=== PATIENT | male | born 1960 | race Caucasian/White ===

== ENCOUNTER → 2016-05-21 | Outpatient (CLI) | payer OTHER ==
[~2016-05-21] MED LIST: ALPR1T PO; BACL10TA PO; DCS100C PO; FNT50TD TD; HYDR-3720 PO; HYOS0.378 PO; METH500T44 PO; ONDA8TAB6 PO; OXYC-272 PO; OXYC15TA PO; SENN1TAB25 PO; SNN187T PO; ZLP10T PO
[2016-05-21 10:21] LABS: MEAN PLATELET VOLUME 9.2 FL (7.4-10.4); RED BLOOD COUNT 5.15 10^6/uL (4.35-5.85); RED CELL DISTRIBUTION WIDTH 13.6 % (10.0-14.5)
[2016-05-21 10:53] LABS: ALANINE AMINOTRANSFERASE 18 U/L (0-55); ALBUMIN 3.9 G/DL (3.2-4.5); ANION GAP 8 MMOL/L (5-14); ASPARTATE AMINO TRANSFERASE 17 U/L (5-34); BILIRUBIN,TOTAL 0.5 MG/DL (0.1-1.0); BLOOD UREA NITROGEN 25 MG/DL (7-18); BUN/CREATININE RATIO 27; CALCIUM 9.5 MG/DL (8.5-10.1); CARBON DIOXIDE 27 MMOL/L (21-32); CHLORIDE 104 MMOL/L (98-107); CHOLESTEROL 238 MG/DL (< 200); CREATININE SERUM 0.94 MG/DL (0.60-1.30); DIRECT LDL 154 MG/DL (1-129); GFR ESTIMATED > 60; GLUCOSE 71 MG/DL (70-105); POTASSIUM 4.5 MMOL/L (3.6-5.0); SODIUM 139 MMOL/L (135-145); TOTAL PROTEIN 6.5 G/DL (6.4-8.2); TRIGLYCERIDES 356 MG/DL (<150); VLDL CHOLESTEROL 71 MG/DL (5-40)
[2016-05-21 11:38] LABS: THYROID STIMULATING HORMONE 3.89 UIU/ML (0.35-4.94)
[2016-05-22 08:26] LABS: CREATININE URINE 226 MG/DL
[2016-05-22 08:30] LABS: BENZODIAZEPINE URINE QUAL DS POSITIVE; METHADONE URINE QUAL DS Negative; OPIATES URINE QUAL DS POSITIVE; PCP URINE QUAL DS Negative; PROPOXYPHENE URINE QUAL DS Negative; SALICYLATE URINE Negative
[2016-05-22 08:31] LABS: URINE DRUG SCREEN POSITIVE
[2016-05-22 08:33] LABS: ETHANOL URINE QUAL DS Negative; THC URINE QUAL DS Negative
[2016-05-26 07:12] LABS: HIV 1/2 INTERP See Footnote; HIV AG AB SCREEN Non-Reactive (Non-Reactive); TESTOSTERONE FREE 65.7 pg/mL (47.0-244.0)
== END ==
LOC: LAB 09:29
PROVIDERS: ATTEND Nurse Practitioner Adult Health
DX: E78.2 Mixed hyperlipidemia (principal); R53.83 Other fatigue; Z79.891 Long term (current) use of opiate analgesic
CPT/HCPCS: 36415; 80053; 80061; 80307; 84402; 84403; 84439; 84443; 85027; 86703

== ENCOUNTER 2017-07-16 14:14 | Emergency (ER) | payer OTHER ==
[~2017-07-16] VITALS: Ht 180.3 cm; Wt 86.2 kg
--- NOTE | 2017-07-16 14:39 | ED Abdominal Pain ---
General Chief Complaint: Abdominal/GI Problems Stated Complaint: ABD PAIN Nursing Triage Note: ARRIVED VIA AMB TO ROOM 05. COMPLAINS OF ABD PAIN RELATED TO AN RIGHT INGUINAL HERNIA. Sepsis Screen: No Definite Risk Source of Information: Patient Exam Limitations: No Limitations History of Present Illness Date Seen by Provider: July 16, 2017 Time Seen by Provider: 14:33 Initial Comments to ER with complaints of a painful right inguinal hernia the past several months. He states that he has had intermittent pain but the pain has been more constant over the past 2-3 days associated with nausea. No vomiting. He is passing gas and having bowel movements without constipation or diarrhea.e states that he's had some left sided inguinal region pain as well and has a history of left inguinal hernia repair several years ago. Comorbidities include chronic back pain for which she takes oxycodone and a seizure disorder for which she takes Xanax. He states that he sees Dr. Stewart from [place] for primary care. She is well-known for her work with HIV patients. He states he does not have hepatitis or HIV, his former partner did have HIV and that's how he got established with Dr. Stweart. Timing/Duration: 2-3 Days Severity/Quality: Moderate Location: RLQ, LLQ Radiation: No Radiation Associated Symptoms: No Fever/Chills; Nausea/Vomiting Allergies and Home Medications Allergies Coded Allergies: NKANo Known Allergies (Verified Allergy, Unknown, 02/18/06) Hydromorphone (Unverified Allergy, 04/20/10) Home Medications Alprazolam 1 Mg Tablet, 1 TAB PO QID PRN for anxiety, (Reported) Oxycodone Hcl 15 Mg Tablet, 15 MG PO Q6H, (Reported) Patient Home Medication List Home Medication List Reviewed: Yes Review of Systems Constitutional: see HPI EENTM: No Symptoms Reported Respiratory: No Symptoms Reported Cardiovascular: No Symptoms Reported Gastrointestinal: See HPI, Abdominal Pain; Denies Constipated, Denies Diarrhea ; Nausea Genitourinary: No Symptoms Reported Musculoskeletal: no symptoms reported Skin: no symptoms reported Psychiatric/Neurological: No Symptoms Reported Endocrine: No Symptoms Reported Past Hscxvoq-Ubvfpe-Rxxvql Hx Patient Social History Recent Foreign Travel: No Contact w/Someone Who Travel: No Recent Infectious Disease Expo: No Recent Hopitalizations: Yes Past Medical History Surgeries: Yes (COLONOSCOPY 05/2010--DIVERTICULOSIS/ANAL FISSURE) Respiratory: No Cardiac: No Neurological: Yes Genitourinary: No Gastrointestinal: Yes (SMALL BOWEL OBSTRUCTION DUE TO NARCOTIC BOWEL 11/2009- NO SURGERY) Chronic Constipation Musculoskeletal: Yes Chronic Back Pain Endocrine: No Cancer: No Psychosocial: Yes Anxiety Integumentary: No Blood Disorders: No Physical Exam Vital Signs Vital Signs - First Documented 07/16/17 14:20 Temp 97.2 Pulse 65 Resp 18 B/P (MAP) 127/79 (95) Pulse Ox 98 O2 Delivery Room Air Capillary Refill : Less Than 3 Seconds General Appearance: WD/WN, no apparent distress HEENT: PERRL/EOMI, normal ENT inspection Neck: non-tender, full range of motion Respiratory: no respiratory distress, no accessory muscle use Cardiovascular: regular rate, rhythm, no murmur Gastrointestinal: normal bowel sounds, soft; No abnormal bowel sounds, No distended, No guarding; tenderness (tthere is a small palpable tender right inguinal hernia that I'm unable to reduce. ) Extremities: normal range of motion, non-tender Neurologic/Psychiatric: alert, normal mood/affect, oriented x 3 Skin: normal color, warm/dry Progress/Results/Core Measures Results/Orders Lab Results Laboratory Tests Test 07/16/17 14:38 07/16/17 15:10 Range/Units White Blood Count 6.7 4.3-11.0 10^3/uL Red Blood Count 4.88 4.35-5.85 10^6/uL Hemoglobin 15.0 13.3-17.7 G/DL Hematocrit 43 40-54 % Mean Corpuscular Volume 88 80-99 FL Mean Corpuscular Hemoglobin 31 25-34 PG Mean Corpuscular Hemoglobin Concent 35 32-36 G/DL Red Cell Distribution Width 13.7 10.0-14.5 % Platelet Count 274 130-400 10^3/uL Mean Platelet Volume 9.0 7.4-10.4 FL Neutrophils (%) (Auto) 43 42-75 % Lymphocytes (%) (Auto) 45 H 12-44 % Monocytes (%) (Auto) 9 0-12 % Eosinophils (%) (Auto) 3 0-10 % Basophils (%) (Auto) 0 0-10 % Neutrophils # (Auto) 2.9 1.8-7.8 X 10^3 Lymphocytes # (Auto) 3.1 1.0-4.0 X 10^3 Monocytes # (Auto) 0.6 0.0-1.0 X 10^3 Eosinophils # (Auto) 0.2 0.0-0.3 10^3/uL Basophils # (Auto) 0.0 0.0-0.1 10^3/uL Sodium Level 140 135-145 MMOL/L Potassium Level 4.0 3.6-5.0 MMOL/L Chloride Level 106 98-107 MMOL/L Carbon Dioxide Level 26 21-32 MMOL/L Anion Gap 8 5-14 MMOL/L Blood Urea Nitrogen 17 7-18 MG/DL Creatinine 1.16 0.60-1.30 MG/DL Estimat Glomerular Filtration Rate > 60 BUN/Creatinine Ratio 15 Glucose Level 94 70-105 MG/DL Calcium Level 8.9 8.5-10.1 MG/DL Total Bilirubin 0.8 0.1-1.0 MG/DL Aspartate Amino Transf (AST/SGOT) 14 5-34 U/L Alanine Aminotransferase (ALT/SGPT) 17 0-55 U/L Alkaline Phosphatase 34 L 40-136 U/L Total Protein 6.6 6.4-8.2 GM/DL Albumin 3.9 3.2-4.5 GM/DL Urine Color YELLOW Urine Clarity CLEAR Urine pH 5 5-9 Urine Specific [place] 1.025 H 1.016-1.022 Urine Protein 1+ H NEGATIVE Urine Glucose (UA) NEGATIVE NEGATIVE Urine Ketones NEGATIVE NEGATIVE Urine Nitrite NEGATIVE NEGATIVE Urine Bilirubin NEGATIVE NEGATIVE Urine Urobilinogen NORMAL NORMAL MG/DL Urine Leukocyte Esterase 1+ H NEGATIVE Urine RBC (Auto) NEGATIVE NEGATIVE Urine RBC NONE /HPF Urine WBC 0-2 /HPF Urine Crystals NONE /LPF Urine Bacteria NONE /HPF Urine Casts NONE /LPF Urine Mucus MODERATE H /LPF Urine Culture Indicated NO Urine Opiates Screen NEGATIVE NEGATIVE Urine Oxycodone Screen POSITIVE H NEGATIVE Urine Methadone Screen NEGATIVE NEGATIVE Urine Propoxyphene Screen NEGATIVE NEGATIVE Urine Barbiturates Screen NEGATIVE NEGATIVE Ur Tricyclic Antidepressants Screen NEGATIVE NEGATIVE Urine Phencyclidine Screen NEGATIVE NEGATIVE Urine Amphetamines Screen NEGATIVE NEGATIVE Urine Methamphetamines Screen NEGATIVE NEGATIVE Urine Benzodiazepines Screen POSITIVE H NEGATIVE Urine Cocaine Screen NEGATIVE NEGATIVE Urine Cannabinoids Screen NEGATIVE NEGATIVE My Orders Orders - NADIR ERICKSON QUARRY SUPERVISOR Cbc With Automated Diff (07/16/17 14:32) Comprehensive Metabolic Panel (07/16/17 14:32) Ua Culture If Indicated (07/16/17 14:32) Iv Heplock-Insert (Order) (07/16/17 14:32) Ct Abdomen/Pelvis W (07/16/17 14:32) Ketorolac Injection (Toradol Injection) (07/16/17 14:45) Drug Screen Stat (Urine) (07/16/17 14:57) Iohexol Injection (Omnipaque 350 Mg/Ml 1 (07/16/17 15:15) Ns (Ivpb) (Sodium Chloride 0.9%) (07/16/17 15:15) Medications Given in ED Current Medications Medications Dose Ordered Sig/Keith Route Start Time Stop Time Status Last Admin Dose Admin Iohexol 100 ml ONCE ONCE IV 07/16/17 15:15 07/16/17 15:16 DC 07/16/17 15:18 100 ML Ketorolac Tromethamine 15 mg ONCE ONCE IVP 07/16/17 14:45 07/16/17 14:46 DC 07/16/17 14:44 15 MG Sodium Chloride 250 ml ONCE ONCE IV 07/16/17 15:15 07/16/17 15:16 DC 07/16/17 15:18 80 ML Vital Signs/I&O 07/16/17 14:20 Temp 97.2 Pulse 65 Resp 18 B/P (MAP) 127/79 (95) Pulse Ox 98 O2 Delivery Room Air Blood Pressure Mean: 95 Diagnostic Imaging Diagonstic Imaging: CT Comments NAME: OLI FREEDMAN [facility] REC#: [id number] PT STATUS: REG ER : 1960 PHYSICIAN: NADIR ERICKSON QUARRY SUPERVISOR ADMIT DATE: 07/16/17/ER Draft Date of Exam:07/16/17 CT ABDOMEN/PELVIS W PROCEDURE: CT abdomen and pelvis with contrast. TECHNIQUE: Multiple contiguous axial images were obtained through the abdomen and pelvis after administration of intravenous contrast. INDICATION: Right-sided abdominal pain. COMPARISON: Comparison is made with prior CT from 11/24/2009. FINDINGS: The lung bases are clear. There are multiple circumscribed low-density lesions within the liver, suggestive of cysts. The largest is in the inferior right lobe measuring 2.8 cm. The cysts have increased in size and number since the CT from 2009. The gallbladder is unremarkable. The pancreas and spleen are unremarkable. No adrenal mass is detected. The kidneys are unremarkable. The aorta is nonaneurysmal. The visualized small and large bowel loops appear to be normal caliber, without evidence of obstruction. There is sigmoid diverticulosis without evidence of acute diverticulitis. There does appear to be a fat-containing hernia in the right groin. The appendix is near this location, but the appendix is not inflamed. No free fluid or fluid collection is identified. There is no free air. Bladder is decompressed. IMPRESSION: 1. Increase in size and number of multiple hepatic cysts since prior CT from 2009. 2. Fat-containing right inguinal hernia. 3. Uncomplicated diverticulosis. Dictated on workstation # [id number] Dict: 07/16/17 1529 Trans: 07/16/17 1539 [id number] Interpreted by: BLANCA FREEDMAN MD Electronically signed by: Departure Communication (Admissions) CT report is only contains fat, no bowel. I'll have him FOLLOW-UP WITH SURGERY IN THE OUTPATIENT SETTING FOR REPAIR OF THIS. Impression Primary Impression: right inguinal hernia Disposition: HOME, SELF-CARE Condition: Stable Departure-Patient Inst. Decision time for Depature: 15:44 Referrals: NARCISA FRANCIS BRETT D DO JENKINS, XAVIER M MD KIDO, TAKAAKI MD NO,LOCAL PHYSICIAN (PCP) Primary Care Physician Patient Instructions: Inguinal and Femoral (Groin) Hernias Add. Discharge Instructions: 1. Return to the emergency room for inability to pass gas or not have a bowel movement. For any fevers or vomiting. Otherwise, call a surgeon of your choosing today to make an appointment to be seen either later this week or next week to schedule repair of this hernia if they feel that is warranted All discharge instructions reviewed with patient and/or family. Voiced understanding. Copy Copies To 1: RHODA GAN PETER J QUARRY SUPERVISOR July 16, 2017 14:39
[2017-07-16] MEDS ORDERED: KETOROLAC 30 MG/ML VIAL IVP ONE (14:45)
--- OUTSIDE RECORDS SUMMARY | 2017-07-16 14:45 | XMS REPORT ---
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
--- OUTSIDE RECORDS SUMMARY | 2017-07-16 14:45 | XMS REPORT ---
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
--- OUTSIDE RECORDS SUMMARY | 2017-07-16 14:45 | XMS REPORT | Clinical Summary ---
Author Author [facility] Organization [facility] Address Unknown Phone Unavailable Care Team Providers Care Vendor Management Associate Name Role Phone Macy Marie PCP Source Comments Some departments are not documenting in the electronic medical record. If you do not see the information that you expected, contact Release of Information in the Health Information Management department at [phone] for further assistance in locating additional records.[facility] Allergies Not on File Current Medications Not on file Active Problems Not on file Social History Tobacco Use Types Packs/Day Years Used Date Never Assessed Sex Assigned at Date Recorded Not on file Last Filed Vital Signs Not on file Plan of Treatment Health Maintenance Due Date Last Done Comments HEPATITIS C SCREENING 1960 PHYSICAL (COMPREHENSIVE) 01/26/1967 EXAM PERTUSSIS VACCINE 01/26/1971 HIV SCREENING 01/26/1975 TETANUS VACCINE 01/26/1977 COLORECTAL CANCER 01/26/2010 SCREENING INFLUENZA VACCINE 11/24/2017 Results Not on filefrom Last 3 Months
[2017-07-16 14:46] LABS: BASOPHILS % (AUTO) 0 % (0-10); EOSINOPHILS # (AUTO) 0.2 10^3/uL (0.0-0.3); EOSINOPHILS % (AUTO) 3 % (0-10); HEMATOCRIT 43 % (40-54); LYMPHOCYTES # (AUTO) 3.1 X 10^3 (1.0-4.0); LYMPHOCYTES % (AUTO) 45 % (12-44); MEAN CORPUSCULAR HEMOGLOBIN 31 PG (25-34); MEAN CORPUSCULAR HGB CONC 35 G/DL (32-36); MEAN CORPUSCULAR VOLUME 88 FL (80-99); MONOCYTES # (AUTO) 0.6 X 10^3 (0.0-1.0); MONOCYTES % (AUTO) 9 % (0-12); NEUTROPHILS # (AUTO) 2.9 X 10^3 (1.8-7.8); NEUTROPHILS % (AUTO) 43 % (42-75); PLATELET COUNT 274 10^3/uL (130-400); RED BLOOD COUNT 4.88 10^6/uL (4.35-5.85); RED CELL DISTRIBUTION WIDTH 13.7 % (10.0-14.5); WHITE BLOOD COUNT 6.7 10^3/uL (4.3-11.0)
--- OUTSIDE RECORDS SUMMARY | 2017-07-16 14:46 | XMS REPORT ---
Author Lora Edouard Organization [facility] Address [address] [place], [place] [address] Care Team Providers Care Oxyacetylene Cutter Name Role Phone Lora Adan Unavailable PROBLEMS Type Condition ICD9-CM Code [id number] Code Onset Dates Condition Status SNOMED Code Problem Chronic depression F32.9 Active 182528390 Problem Low back pain M54.5 Active 075358441 Problem Mixed hyperlipidemia E78.2 Active 337887382 Problem Neuropathy G62.9 Active 307933747 Problem Shortness of breath R06.02 Active 138748058 Problem Generalized anxiety disorder F41.1 Active 77470378 Problem Other chronic pain G89.29 Active 37150696 Problem detention current use of opiate analgesic Z79.891 Active 776150200 Problem Rash and other nonspecific skin eruption R21 Active 000047867 ALLERGIES No Information ENCOUNTERS Encounter Location Date Diagnosis [address] [address] Mar, [address] [address] Mar, Other chronic pain G89.29 and Generalized anxiety disorder F41.[address] [address] Feb, Other chronic pain G89.29 and Generalized anxiety disorder F41.[address] [address] Jan, Other chronic pain G89.29 and Generalized anxiety disorder F41.[address] [address] Dec, Other chronic pain G89.29 and Generalized anxiety disorder F41.[address] [address] Nov, Other chronic pain G89.29 and Generalized anxiety disorder F41.1 [facility] [address] [facility] [place] [address] Oct, Other chronic pain G89.29 ; Generalized anxiety disorder F41.1 and Influenza vaccine needed Z23 [facility] [address] [facility] [place] [address] Sep, Low back pain M54.5 and Generalized anxiety disorder F41.1 [facility] [address] [facility] [place] [address] Aug, [facility] [address] [facility] [place] [address] Aug, [facility] [address] [facility] [place] [address] Aug, Other chronic pain G89.29 [facility] [address] [facility] [place] [address] Aug, Generalized anxiety disorder F41.1 and Low back pain M54.5 [facility] [address] [facility] [place] [address] Jul, Generalized anxiety disorder F41.1 and Low back pain M54.5 [facility] [address] [place] [address] June, Generalized anxiety disorder F41.1 and Low back pain M54.5 [facility] [address] [place] [address] May, Generalized anxiety disorder F41.1 and Low back pain M54.5 [facility] [address] [place] [address] May, [facility] [address] [place] [address] Apr, [facility] [address] [place] [address] Apr, [facility] [address] [place] [address] Apr, Generalized anxiety disorder F41.1 and Low back pain M54.5 [facility] [address] [place] [address] Apr, [facility] [address] [facility] [place] [address] Apr, [facility] [address] [place] [address] Apr, Low back pain M54.5 ; detention current use of opiate analgesic Z79.891 ; Chronic depression F32.9 ; Mixed hyperlipidemia E78.2 ; Generalized anxiety disorder F41.1 and Other fatigue R53.83 [facility] [address] [facility] [place] [address] Mar, [facility] [address] [facility] [place] [address] Mar, [facility] [address] [facility] [place] [address] Mar, Other chronic pain G89.29 and Generalized anxiety disorder F41.1 [facility] [address] [place] [address] Feb, Generalized anxiety disorder F41.1 and Other chronic pain G89.29 [facility] [address] [facility] [place] [address] Feb, [facility] [address] [place] [address] Feb, Sick R69 [facility] [address] [place] [address] Jan, [facility] [address] [place] [address] Jan, Generalized anxiety disorder F41.1 and Other chronic pain G89.29 [facility] [address] [place] [address] Dec, [facility] [address] [place] [address] Dec, Low back pain M54.5 and Generalized anxiety disorder F41.1 [facility] [address] [facility] [place] [address] Dec, [facility] [address] [place] [address] Dec, Low back pain M54.5 [facility] [address] [place] [address] Nov, Generalized anxiety disorder F41.1 and Low back pain M54.[address] [address] Oct, Other chronic pain G89.29 ; Generalized anxiety disorder F41.1 and URI (upper respiratory infection) J06.[address] [address] Oct, [facility] [address] [place] [phone] Sep, Low back pain M54.5 ; 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 ; Generalized anxiety disorder F41.1 ; Chronic depression F32.9 ; Neuropathy G62.9 and URI (upper respiratory infection) J06.[address] [address] Sep, Other chronic pain G89.29 ; Generalized anxiety disorder F41.1 and Upper respiratory infection J06.[address] [address] Aug, [address] [address] Aug, [address] [address] Aug, [address] [address] Aug, [address] [address] Aug, Other chronic pain G89.29 and Generalized anxiety disorder F41.[address] [address] June, Low back pain M54.5 and Generalized anxiety disorder F41.[address] [address] June, [address] [address] June, Other chronic pain G89.29 and Generalized anxiety disorder F41.[address] [address] May, Flu-like symptoms R68.[address] [address] May, Generalized anxiety disorder F41.[address] [address] May, [address] [address] May, Other chronic pain G89.[address] [address] Apr, Generalized anxiety disorder F41.[address] [address] Mar, [address] [address] Mar, [address] [address] Mar, Other chronic pain G89.[address] [address] Mar, [address] [address] Mar, Generalized anxiety disorder F41.[address] [address] Mar, Other chronic pain G89.29 and Generalized anxiety disorder F41.1 [facility] [address] [place] [phone] Feb, 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 ; Other chronic pain G89.29 ; Generalized anxiety disorder F41.1 ; Low back pain M54.5 ; Chronic depression F32.9 ; Mixed hyperlipidemia E78.2 ; Rash and other nonspecific skin eruption R21 ; Shortness of breath R06.02 ; Neuropathy G62.9 and Fungal dermatitis B36.[address] [address] Jan, Other chronic pain G89.29 and Generalized anxiety disorder F41.1 [facility] [address] [place] [address] Jan, Upper respiratory infection J06.9 and Rash R21 [facility] [address] [place] [address] Dec, Generalized anxiety disorder F41.1 and Other chronic pain G89.29 [facility] [address] [place] [address] Dec, [facility] [address] [place] [address] Nov, Other chronic pain G89.29 and Generalized anxiety disorder F41.1 [facility] [address] [place] [address] Oct, [facility] [address] [place] [address] Oct, Other chronic pain 338.29 and Generalized anxiety disorder 300.02 [facility] [address] [place] [address] Sep, [facility] [address] [place] [address] Sep, [facility] [address] [place] [address] Sep, Other chronic pain 338.29 and Generalized anxiety disorder 300.02 [facility] [address] [place] [address] Aug, [facility] [address] [place] [address] Aug, [facility] [address] [place] [address] Aug, [facility] [address] [place] [address] Aug, [facility] [address] [place] [address] Aug, [facility] [address] [place], [place] [phone] Aug, Other chronic pain 338.29 ; Back pain 724.5 ; Dysthymic disorder 300.4 ; Generalized anxiety disorder 300.02 and Tobacco use disorder 305.1 [facility] [address] [place] [address] Jul, Other chronic pain 338.29 [facility] [address] [place] [address] Jul, Other chronic pain 338.29 and Generalized anxiety disorder 300.02 [facility] [address] [place] [address] Jul, [facility] [address] [place] [address] June, Other chronic pain 338.29 and Generalized anxiety disorder 300.02 [facility] [address] [place] [address] June, Other chronic pain 338.29 and Generalized anxiety disorder 300.02 [facility] [address] [phone] May, Back pain 724.5 [facility] [address] [place] [address] Apr, [facility] [address] [place] [address] Mar, [facility] [address] [place] [address] Mar, Other chronic pain 338.29 and Generalized anxiety disorder 300.02 [facility] [address] [place] [address] Feb, Other chronic pain 338.29 and Generalized anxiety disorder 300.02 [facility] [address] [phone] Dec, Other chronic pain 338.29 and Dysthymic disorder 300.4 [facility] [address] [place] [address] Nov, [facility] [address] [place] [address] Nov, Other chronic pain 338.29 UNKNOWN Nov, [facility] [address] [place] [address] Nov, [facility] [address] [facility] [place] [address] Oct, [facility] [place] [place] [facility] [address] [facility] [address] [place] [phone] Oct, Back pain 724.5 [facility] [address] [facility] [place] [phone] Oct, Other chronic pain 338.29 ; Dysthymic disorder 300.4 and Persistent disorder of initiating or maintaining sleep 307.42 [facility] [address] [facility] [place] [address] Oct, [facility] [address] [facility] [place] [address] Oct, [facility] [address] [facility] [place] [address] Oct, [facility] [address] [facility] [place] [address] Sep, Back pain, chronic 724.5 [facility] [address] [facility] [address] [place] [phone] Sep, [facility] [address] [facility] [address] [place] [phone] Sep, [facility] [address] [facility] [address] [place] [phone] June, [facility] [address] [facility] [place] [address] May, [facility] [address] [facility] [place] [address] May, [facility] [address] [facility] [address] [place] [phone] Mar, [facility] [address] [facility] [place] [address] Dec, [facility] [address] [facility] [place] [address] June, [facility] [address] [facility] [place] [address] Apr, [facility] [address] [facility] [place] [address] Feb, [facility] [address] [place] [address] Oct, [facility] [address] [place] [address] Jul, [facility] [address] [place] [address] Feb, [facility] [address] [facility] [address] [place], [place] [phone] Nov, IMMUNIZATIONS No Known Immunizations SOCIAL HISTORY Never Assessed REASON FOR VISIT returning your call PLAN OF CARE VITAL SIGNS MEDICATIONS Medication Instructions Dosage Frequency Start Date End Date Duration Status Lidocaine HCl 2 % Externally Three times a day 1 application to affected area as needed Mar, Active RESULTS No Results PROCEDURES No Known procedures INSTRUCTIONS MEDICATIONS ADMINISTERED No Known Medications MEDICAL (GENERAL) HISTORY Type Description Date Medical History Other convulsions Medical History Impacted cerumen (Inactive) Medical History Dysuria (Inactive) Medical History Nausea with vomiting (Inactive)
--- OUTSIDE RECORDS SUMMARY | 2017-07-16 14:46 | XMS REPORT ---
Author Author Zuleika Stevens Organization [employer] Address Unknown Phone Unavailable Care Team Providers Care Splitter Hand Name Role Phone Zuleika Stevens CP Unavailable Allergies No Known Allergies Problems Problem Type Condition Code Onset Dates Condition Status Problem Chronic depression F32.9 Active Problem Mixed hyperlipidemia E78.2 Active Problem Rash and other nonspecific skin eruption R21 Active Problem Shortness of breath R06.02 Active Problem terminologist current use of opiate analgesic Z79.891 Active Problem Generalized anxiety disorder F41.1 Active Problem Low back pain M54.5 Active Problem Neuropathy G62.9 Active Problem Other chronic pain G89.29 Active Medications No Known Medications Results No Known Results Summary Purpose [employer] Submission
--- OUTSIDE RECORDS SUMMARY | 2017-07-16 14:46 | XMS REPORT ---
Author Author Zuleika Stevens Organization [employer] Address Unknown Phone Unavailable Care Team Providers Care Trimmer Operator Three Knife Name Role Phone Zuleika Stevens CP Unavailable Allergies No Known Allergies Problems Problem Type Condition Code Onset Dates Condition Status Problem Dysthymic disorder 300.4 Active Problem Other chronic pain 338.29 Active Problem Depressive disorder, not elsewhere classified 311 Active Assessment Rash R21 Active Assessment Upper respiratory infection J06.9 Active Problem Generalized anxiety disorder F41.1 Active Problem Tobacco use disorder 305.1 Active Problem Other chronic pain G89.29 Active Problem Generalized anxiety disorder 300.02 Active Problem 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 [address]-13 15 MG Oral every 6 hrs Oct 07, 2013Feb 1 tablet as needed Zithromax [facility] [address]-96 250 MG Orally Once a day Jan 25, 2015 2 tablets on the first day, then 1 tablet daily for [address] [facility] [address]-67 2.5 % Externally Twice a day Jan 25, 2015 1 application to affected area Alprazolam [facility] [address]-75 1 MG Orally four times a day Feb 12, 2015 1 tablet Results No Known Results Summary Purpose [employer] Submission
--- OUTSIDE RECORDS SUMMARY | 2017-07-16 14:46 | XMS REPORT ---
Author Author Zuleika Stevens Organization [employer] Address Unknown Phone Unavailable Care Team Providers Care Collar Turner Operator Name Role Phone Zuleika Stevens CP Unavailable Allergies No Known Allergies Problems Problem Type Condition Code Onset Dates Condition Status Problem Dysthymic disorder 300.4 Active Problem Other chronic pain 338.29 Active Problem Depressive disorder, not elsewhere classified 311 Active Assessment Generalized anxiety disorder F41.1 Active Assessment Other chronic pain G89.29 Active Problem Generalized anxiety disorder F41.1 Active Problem Tobacco use disorder 305.1 Active Problem Other chronic pain G89.29 Active Problem Generalized anxiety disorder 300.02 Active Problem 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
--- OUTSIDE RECORDS SUMMARY | 2017-07-16 14:46 | XMS REPORT ---
Author Author Zuleika Stevens [facility] [employer] Address Unknown Phone Unavailable Care Team Providers Care Casino Investigator Name Role Phone Zuleika Stevens Unavailable Allergies No Known Allergies Problems Problem Type Condition Code Onset Dates Condition Status Assessment Generalized anxiety disorder 300.02 Active Assessment Other chronic pain 338.29 Active Problem Drug withdrawal 292.0 Inactive Problem Diarrhea 787.91 Inactive Problem Urethral discharge 788.7 Inactive Problem Other, mixed, or unspecified nondependent drug abuse, episodic 305.92 Inactive Problem Screening for lipoid disorders V77.91 Inactive Problem Other urinary problems V47.4 Inactive Problem Nausea with vomiting 787.01 Inactive Problem Dysthymic disorder 300.4 Active Problem Depressive disorder, not elsewhere classified 311 Inactive Problem Cough 786.2 Inactive Problem Other chronic pain 338.29 Active Problem Special screening for malignant neoplasm of prostate V76.44 Inactive Problem Obesity, unspecified 278.00 Inactive Problem Screening examination for venereal disease V74.5 Inactive Problem Other and unspecified hyperlipidemia 272.4 Inactive Problem Back pain 724.5 Active Problem Dysuria 788.1 Inactive Problem Need for prophylactic vaccination and inoculation, Influenza V04.81 Inactive Problem 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 Problem Mixed hyperlipidemia 272.2 Inactive Problem Generalized anxiety disorder 300.02 Inactive Problem Contact or exposure to other viral diseases V01.79 Inactive Problem Impacted cerumen 380.4 Inactive Problem Other acute sinusitis 461.8 Inactive Problem Dermatophytosis of nail 110.1 Inactive Problem Other convulsions 780.39 Active Problem Attention or concentration deficit 799.51 Inactive Problem Other malaise and fatigue 780.79 Active Problem Nocturia 788.43 Active Medications Medication Code System Code Instructions Start Date End Date Status Dosage Xanax [facility] [address]-80 1 MG Oral 1 (one) QID PRN Oct 07, 2013 please fill 09/08/13supervising physician Dr. Coretta Stewart Alprazolam [facility] [address]-01 1 MG Orally four times a day September 03, 2014 1 tablet Oxycodone HCl [facility] [address]-47 15 MG Oral every 6 hrs Oct 07, 2013 September 03, 2014 1 tablet as needed Results No Known Results Summary Purpose [employer] Submission
--- OUTSIDE RECORDS SUMMARY | 2017-07-16 14:46 | XMS REPORT ---
Author Author Zuleika Stevens Organization [employer] Address Unknown Phone Unavailable Care Team Providers Care Margin Trimmer Name Role Phone Zuleika Stevens CP Unavailable Allergies No Known Allergies Problems Problem Type Condition ICD-9 Code Onset Dates Condition Status Problem Drug withdrawal 292.0 Inactive Problem Diarrhea [...] 780.79 Active Problem Nocturia 788.43 Active Medications No Known Medications Results No Known Results Summary Purpose [employer] Submission
--- OUTSIDE RECORDS SUMMARY | 2017-07-16 14:46 | XMS REPORT ---
Author Author Coretta Stewart Organization [employer] Address Unknown Phone Unavailable Care Team Providers Care Asparagus Cutter Name Role Phone Terry Coretta CP Unavailable Allergies No Known Allergies Problems Problem Type Condition ICD-9 Code Onset Dates Condition Status Assessment Generalized [...] Date End Date Status Dosage Oxycodone HCl [facility] [address]-25 20 MG Orally every 6 hrs Oct 07, 2013 Apr 01, 2014 1 tablet as needed Results No Known Results Summary Purpose [employer] Submission
--- OUTSIDE RECORDS SUMMARY | 2017-07-16 14:47 | XMS REPORT ---
Author Author Zuleika Stevens [facility] Address [address] [place], [place] [id number] Care Team Providers Care Kinder Teacher Name Role Phone Zuleika Stevens Unavailable PROBLEMS Type Condition ICD9-CM Code [id number] Code Onset Dates Condition Status SNOMED Code Problem Mixed hyperlipidemia E78.2 Active 918720261 Problem Low back pain M54.5 Active 317105367 Problem Chronic depression F32.9 Active 384469769 Assessment Generalized anxiety disorder F41.1 Jan, Active 90812526 Problem correction current use of opiate analgesic Z79.891 Active 749256731 Problem Rash and other nonspecific skin eruption R21 Active 118273873 Problem Other chronic pain G89.29 Active 03631038 Problem Generalized anxiety disorder F41.1 Active 35685776 Problem Shortness of breath R06.02 Active 428697859 Problem Neuropathy G62.9 Active 738464418 ALLERGIES Unknown Allergies SOCIAL HISTORY No smoking Hx information available PLAN OF CARE VITAL SIGNS MEDICATIONS Medication Instructions Dosage Frequency Start Date End Date Duration Status Oxycodone HCl 15 MG Oral every 6 hrs 1 tablet as needed 6h Sep, Feb, 30 days Active Lyrica 200 MG Orally Twice a day 1 capsule 12h Feb, 30 days Active Alprazolam 1 MG Orally four times a day 1 tablet 6h Feb, 30 days Active RESULTS No Results PROCEDURES No Known procedures IMMUNIZATIONS No Known Immunizations
--- OUTSIDE RECORDS SUMMARY | 2017-07-16 14:47 | XMS REPORT ---
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 Active 888957119 Problem Rash and other nonspecific skin eruption R21 Active 687719778 Problem Other chronic pain G89.29 Active 86702952 Problem Generalized anxiety disorder F41.1 Active 59439385 Problem Shortness of breath R06.02 Active 553027806 Problem Neuropathy G62.9 Active 886182033 ALLERGIES Unknown Allergies SOCIAL HISTORY No smoking Hx information available PLAN OF CARE VITAL SIGNS MEDICATIONS Medication Instructions Dosage Frequency Start Date End Date Duration Status Alprazolam 1 MG Orally four times a day 1 tablet 6h May, 30 days Active Oxycodone HCl 15 MG Oral every 6 hrs 1 tablet as needed 6h Sep, May, 30 days Active RESULTS No Results PROCEDURES No Known procedures IMMUNIZATIONS No Known Immunizations
--- OUTSIDE RECORDS SUMMARY | 2017-07-16 14:47 | XMS REPORT ---
Author Lora Edouard [facility] Address [address] [place], [place] [id number] Care Team Providers Care Bias Cutter Helper Name Role Phone Lora Adan Unavailable PROBLEMS ALLERGIES No Information ENCOUNTERS IMMUNIZATIONS No Known Immunizations SOCIAL HISTORY No smoking Hx information available REASON FOR VISIT PLAN OF CARE VITAL SIGNS MEDICATIONS RESULTS No Results PROCEDURES No Known procedures INSTRUCTIONS MEDICATIONS ADMINISTERED No Known Medications MEDICAL (GENERAL) HISTORY
--- OUTSIDE RECORDS SUMMARY | 2017-07-16 14:47 | XMS REPORT ---
Author Author Zuleika Stevens [facility] eClinicalWorks Address Unknown Phone Unavailable Care Team Providers Care Ceramic Tile Installation Helper Name Role Phone Zuleika Stevens CP Unavailable Allergies, Adverse Reactions, Alerts Substance Reaction Event Type diluadid lowers bp Non Drug Allergy Problems Problem Type Condition Code Onset Dates Condition Status Assessment Low back pain M54.5 Active Problem Chronic depression F32.9 Active Problem Mixed hyperlipidemia E78.2 Active Problem Rash and other nonspecific skin eruption R21 Active Problem Shortness of breath R06.02 Active Problem 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 Active Problem Generalized anxiety disorder F41.1 Active Problem Low back pain M54.5 Active Problem Neuropathy G62.9 Active Problem Other chronic pain G89.29 Active Assessment Neuropathy G62.9 Active Assessment Chronic depression F32.9 Active Assessment Generalized anxiety disorder F41.1 Active Assessment URI (upper respiratory infection) J06.9 Active Assessment 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 Active Medications Medication Code System Code Instructions Start Date End Date Status Dosage Lyrica [facility] [address]-30 200 MG Orally Twice a day Mar 07, 2015 1 capsule Zithromax [facility] [address]-59 250 MG Orally Once a day Oct 17, 2015 2 tablets on the first day, then 1 tablet daily for 4 days Alprazolam [facility] [address]-27 1 MG Orally four times a day Oct 18, 2015 1 tablet Oxycodone HCl [facility] [address]-89 15 MG Oral every 6 hrs Oct 07, 2013Sep 1 tablet as needed Procedures Procedure Coding System Code Date Office Visit, Est Pt., Level 3 CPT-4 65700 Oct 17, 2015 Billed by outside source CPT-4 NOBLL Oct 17, 2015 Vital Signs Date/Time: Oct 17, 2015 Temperature 97.3 F Weight 191 lbs Height 71 in Respiratory Rate 16 /min Cardiac Monitoring Heart Rate 55 /min Blood Pressure Diastolic 76 mm Hg Blood Pressure Systolic 116 mm Hg BMI 26.64 Index Oximetry 90 % Results Name Result Date Reference Range Unit Abnormality Flag QMP Plus D/L (urine) Summary Purpose eClinicalWorks Submission
--- OUTSIDE RECORDS SUMMARY | 2017-07-16 14:51 | XMS REPORT ---
Author Author Zuleika Stevens [facility] Address [address] [place], [place] [id number] Care Team Providers Care Laborer Tree Tapping Name Role Phone Zuleika Stevens Unavailable PROBLEMS Type Condition ICD9-CM Code [id number] Code Onset Dates Condition Status SNOMED Code Problem Mixed hyperlipidemia E78.2 Active 861557031 Problem Low back pain M54.5 Active 671607470 Problem Chronic depression F32.9 Active 059276648 Problem jacquard lace weaver current use of opiate analgesic Z79.891 Active 677115861 Problem Rash and other nonspecific skin eruption R21 Active 013507453 Problem Other chronic pain G89.29 Active 49389776 Problem Generalized anxiety disorder F41.1 Active 90204019 Problem Shortness of breath R06.02 Active 404365373 Problem Neuropathy G62.9 Active 315990477 ALLERGIES Unknown Allergies SOCIAL HISTORY No smoking Hx information available PLAN OF CARE VITAL SIGNS MEDICATIONS Unknown Medications RESULTS No Results PROCEDURES No Known procedures IMMUNIZATIONS No Known Immunizations
--- OUTSIDE RECORDS SUMMARY | 2017-07-16 14:57 | XMS REPORT ---
Author Author Zuleika Stevens Organization eClinicalWorks Address Unknown Phone Unavailable Care Team Providers Care Toilet And Laundry Soap Supervisor Name Role Phone Zuleika Steevns CP Unavailable Allergies No Known Allergies Problems Problem Type Condition ICD-9 Code Onset Dates Condition Status Problem Dysthymic disorder 300.4 Active Problem Back pain 724.5 Active Problem Mixed hyperlipidemia 272.2 Active Problem Tobacco use disorder 305.1 Active Problem Other chronic pain 338.29 Active Problem Depressive disorder, not elsewhere classified 311 Active Problem Generalized anxiety disorder 300.02 Active Problem 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
--- OUTSIDE RECORDS SUMMARY | 2017-07-16 14:57 | XMS REPORT ---
Author Author Zuleika Stevens 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
--- OUTSIDE RECORDS SUMMARY | 2017-07-16 14:57 | XMS REPORT ---
Author Author Zuleika Stevens Organization eClinicalWorks Address Unknown Phone Unavailable Care Team Providers Care Tie Presser Name Role Phone Zuleika Stevens CP Unavailable Allergies No Known Allergies Problems Problem Type Condition Code Onset Dates Condition Status Problem Drug [...]
--- OUTSIDE RECORDS SUMMARY | 2017-07-16 15:01 | XMS REPORT ---
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.891 Active 018204474 Problem Rash and other nonspecific skin eruption R21 Active 666227730 Problem Other chronic pain G89.29 Active 08958019 Problem Generalized anxiety disorder F41.1 Active 34937763 Problem Shortness of breath R06.02 Active 342906540 Problem Neuropathy G62.9 Active 434173873 ALLERGIES Unknown Allergies SOCIAL HISTORY No smoking Hx information available PLAN OF CARE VITAL SIGNS MEDICATIONS Medication Instructions Dosage Frequency Start Date End Date Duration Status Alprazolam 1 MG Orally four times a day 1 tablet 6h Jul, 30 days Active Oxycodone HCl 15 MG Oral every 6 hrs 1 tablet as needed 6h Sep, Jul, 30 days Active RESULTS No Results PROCEDURES No Known procedures IMMUNIZATIONS No Known Immunizations
--- OUTSIDE RECORDS SUMMARY | 2017-07-16 15:02 | XMS REPORT ---
Author Author Zuleika Stevens Organization eClinicalWorks Address Unknown Phone Unavailable Care Team Providers Care Police Clerk Name Role Phone Zuleika Stevens CP Unavailable [...]
--- OUTSIDE RECORDS SUMMARY | 2017-07-16 15:02 | XMS REPORT ---
Author Author Zuleika Stevens Organization eClinicalWorks Address Unknown Phone Unavailable Care Team Providers Care Marine Design Engineer Name Role Phone Zuleika Stevens CP Unavailable [...]
--- OUTSIDE RECORDS SUMMARY | 2017-07-16 15:03 | XMS REPORT ---
Author Author Zuleika Stevens Organization eClinicalWorks Address Unknown Phone Unavailable Care Team Providers Care Tailer Off Name Role Phone Zuleika Stevens CP Unavailable [...] Date End Date Status Dosage Oxycodone HCl [facility] [address]-96 15 MG Oral every 6 hrs Oct 07, 2013Dec 1 tablet as needed Alprazolam [facility] [address]-50 1 MG Orally four times a day Jan 13, 2015 1 tablet Results No Known Results Summary Purpose eClinicalWorks Submission
--- OUTSIDE RECORDS SUMMARY | 2017-07-16 15:03 | XMS REPORT ---
Author Author SHAKILA ACEVEDO [facility] Address [address] [place] [address] Care Team Providers Care Veneer Jointer Operator Name Role Phone SHAKILA ACEVEDO Unavailable PROBLEMS Type Condition ICD9-CM Code WXP34-DI Code Onset Dates Condition Status SNOMED Code Problem Unspecified viral hepatitis C without hepatic coma 070.70 Active 78903199 Problem Anxiety state, unspecified 300.00 Active 525188196 Problem Disturbances of sensation of smell and taste 781.1 Active 8323734469754 Problem STATE HEP A (ADULT) DX V05.3 Active 033096223 Problem Acute sinusitis, unspecified 461.9 Active 89682930 Problem Lumbago 724.2 Active 784884160 ALLERGIES Unknown Allergies SOCIAL HISTORY No smoking Hx information available PLAN OF CARE VITAL SIGNS MEDICATIONS Unknown Medications RESULTS No Results PROCEDURES No Known procedures IMMUNIZATIONS No Known Immunizations
--- OUTSIDE RECORDS SUMMARY | 2017-07-16 15:03 | XMS REPORT ---
Author Author Lora Adan [facility] Address [address] [place], [place] [id number] Care Team Providers Care Analytical Engineer Name Role Phone Lora Adan Unavailable PROBLEMS Type Condition ICD9-CM Code EON83-WS Code Onset Dates Condition Status SNOMED Code Problem Chronic depression F32.9 Active 480825957 Problem Low back pain M54.5 Active 372896917 Problem Mixed hyperlipidemia E78.2 Active 044613477 Problem Neuropathy G62.9 Active 566861243 Problem Shortness of breath R06.02 Active 405985205 Problem Generalized anxiety disorder F41.1 Active 07853533 Problem Other chronic pain G89.29 Active 80408775 Problem buttermaker current use of opiate analgesic Z79.891 Active 348921960 Problem Rash and other nonspecific skin eruption R21 Active 173734110 ALLERGIES No Information SOCIAL HISTORY Never Assessed PLAN OF CARE VITAL SIGNS MEDICATIONS Medication Instructions Dosage Frequency Start Date End Date Duration Status Xanax 1 MG Orally QID 1 tablet 6h Feb, 30 days Active Oxycodone HCl 15 MG Orally every 6 hrs 1 tablet 6h Feb, 30 days Active RESULTS No Results PROCEDURES No Known procedures IMMUNIZATIONS No Known Immunizations MEDICAL (GENERAL) HISTORY Type Description Date Medical History Other convulsions Medical History Impacted cerumen (Inactive) Medical History Dysuria (Inactive) Medical History Nausea with vomiting (Inactive)
--- OUTSIDE RECORDS SUMMARY | 2017-07-16 15:03 | XMS REPORT ---
Author Author Jaky Dempsey [facility] Address [address] [place], [place] [address] Care Team Providers Care Information Assoc Name Role Phone Jaky Dempsey Unavailable PROBLEMS Type Condition ICD9-CM Code VMH14-UF Code Onset Dates Condition Status SNOMED Code Problem Mixed hyperlipidemia E78.2 Active 360190773 Problem Low back pain M54.5 Active 449976326 Problem Chronic depression F32.9 Active 131015661 Problem nursing home current use of opiate analgesic Z79.891 Active 884738045 Problem Rash and other nonspecific skin eruption R21 Active 255820016 Problem Other chronic pain G89.29 Active 29034782 Problem Generalized anxiety disorder F41.1 Active 19349571 Problem Shortness of breath R06.02 Active 685900317 Problem Neuropathy G62.9 Active 887333545 ALLERGIES Unknown Allergies SOCIAL HISTORY No smoking Hx information available PLAN OF CARE VITAL SIGNS MEDICATIONS Medication Instructions Dosage Frequency Start Date End Date Duration Status Alprazolam 1 MG Orally four times a day 1 tablet 6h Oct, 30 days Active Oxycodone HCl 15 MG Oral every 6 hrs 1 tablet as needed 6h Sep, Oct, 30 days Active RESULTS No Results PROCEDURES No Known procedures IMMUNIZATIONS No Known Immunizations
--- OUTSIDE RECORDS SUMMARY | 2017-07-16 15:06 | XMS REPORT ---
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 [address]-73 1 MG Orally four times a day Feb 14, 2016 1 tablet Oxycodone HCl [facility] [address]-69 15 MG Oral every 6 hrs Oct 07, 2013Jan 1 tablet as needed Results No Known Results Summary Purpose eClinicalWorks Submission
[2017-07-16 15:09] LABS: ALANINE AMINOTRANSFERASE 17 U/L (0-55); ALBUMIN 3.9 GM/DL (3.2-4.5); ALKALINE PHOSPHATASE 34 U/L (40-136); BILIRUBIN,TOTAL 0.8 MG/DL (0.1-1.0); BUN/CREATININE RATIO 15; CALCIUM 8.9 MG/DL (8.5-10.1); CARBON DIOXIDE 26 MMOL/L (21-32); CHLORIDE 106 MMOL/L (98-107); CREATININE SERUM 1.16 MG/DL (0.60-1.30); GFR ESTIMATED > 60; GLUCOSE 94 MG/DL (70-105); SODIUM 140 MMOL/L (135-145); TOTAL PROTEIN 6.6 GM/DL (6.4-8.2)
--- OUTSIDE RECORDS SUMMARY | 2017-07-16 15:12 | XMS REPORT ---
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
--- OUTSIDE RECORDS SUMMARY | 2017-07-16 15:13 | XMS REPORT ---
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 Z79.891 Active 008359180 Problem Rash and other nonspecific skin eruption R21 Active 798082239 Problem Other chronic pain G89.29 Active 65468823 Problem Generalized anxiety disorder F41.1 Active 40821218 Problem Shortness of breath R06.02 Active 511105061 Problem Neuropathy G62.9 Active 388569206 ALLERGIES Unknown Allergies SOCIAL HISTORY No smoking Hx information available PLAN OF CARE VITAL SIGNS MEDICATIONS Medication Instructions Dosage Frequency Start Date End Date Duration Status Oxycodone HCl 15 MG Oral every 6 hrs 1 tablet as needed 6h Sep, Sep, 30 days Active Alprazolam 1 MG Orally four times a day 1 tablet 6h Sep, 30 days Active RESULTS No Results PROCEDURES No Known procedures IMMUNIZATIONS No Known Immunizations
[2017-07-16] MEDS ORDERED: IOHEXOL 350 MG/ML 100 ML (OMNIPAQUE 350) VIAL IV ONE (15:15)
[2017-07-16] MEDS ORDERED: NS 250 ML (IVPB) BAG IV ONE (15:15)
--- OUTSIDE RECORDS SUMMARY | 2017-07-16 15:15 | XMS REPORT ---
Author Author Zuleika Stevens Organization eClinicalWorks Address Unknown Phone Unavailable Care Team Providers Care Agricultural Economics Professor Name Role Phone Zuleika Stevens CP Unavailable [...] Start Date End Date Status Dosage Alprazolam [facility] [address]-81 1 MG Orally four times a day August 23, 2014 1 tablet Oxycodone HCl [facility] [address]-05 15 MG Oral every 6 hrs Oct 07, 2013 August 23, 2014 1 tablet as needed Results No Known Results Summary Purpose eClinicalWorks Submission
--- OUTSIDE RECORDS SUMMARY | 2017-07-16 15:15 | XMS REPORT ---
Author Author Zuleika Stevens Organization eClinicalWorks Address Unknown Phone Unavailable Care Team Providers Care Articulation Officer Name Role Phone Zuleika Stevens CP Unavailable Allergies No Known Allergies Problems Problem Type Condition Code Onset Dates Condition Status Problem Dysthymic disorder 300.4 Active Problem Other chronic pain 338.29 Active Problem Depressive disorder, not elsewhere classified 311 Active Assessment Other chronic pain G89.29 Active Assessment Generalized anxiety disorder F41.1 Active Problem Generalized anxiety disorder F41.1 Active Problem Tobacco use disorder 305.1 Active Problem Other chronic pain G89.29 Active Problem Generalized anxiety disorder 300.02 Active Problem 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 Problem Back pain 724.5 Active Problem Mixed hyperlipidemia 272.2 Active Medications Medication Code System Code Instructions Start Date End Date Status Dosage Oxycodone HCl [facility] [address]-70 15 MG Oral every 6 hrs Oct 07, 2013Feb 1 tablet as needed Alprazolam [facility] [address]-01 1 MG Orally four times a day Feb 12, 2015 1 tablet Results No Known Results Summary Purpose eClinicalWorks Submission
--- OUTSIDE RECORDS SUMMARY | 2017-07-16 15:15 | XMS REPORT ---
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 Active 356899217 Problem Rash and other nonspecific skin eruption R21 Active 197777078 Problem Other chronic pain G89.29 Active 26515490 Problem Generalized anxiety disorder F41.1 Active 20983034 Problem Shortness of breath R06.02 Active 450793053 Problem Neuropathy G62.9 Active 244923981 ALLERGIES Unknown Allergies SOCIAL HISTORY No smoking Hx information available PLAN OF CARE VITAL SIGNS Height 71 in 2016-04-24 Weight 194 lbs 2016-04-24 Heart Rate 76 /min 2016-04-24 Respiratory Rate 16 /min 2016-04-24 Oximetry 98 % 2016-04-24 BMI 27.05 kg/m2 2016-04-24 Blood pressure systolic 122 mm Hg 2016-04-24 Blood pressure diastolic 72 mm Hg 2016-04-24 MEDICATIONS Medication Instructions Dosage Frequency Start Date End Date Duration Status Oxycodone HCl 15 MG Oral every 6 hrs 1 tablet as needed 6h Sep, Mar, 30 days Active Alprazolam 1 MG Orally four times a day 1 tablet 6h Mar, 30 days Active RESULTS No Results PROCEDURES Procedure Date Ordered Related Diagnosis Body Site COMPLETE CBC, AUTOMATED April 24, 2016 COMPREHEN METABOLIC PANEL April 24, 2016 Billed by outside source April 24, 2016 ASSAY OF FREE THYROXINE April 24, 2016 Office Visit, Est Pt., Level 4 April 24, 2016 ASSAY OF TOTAL TESTOSTERONE April 24, 2016 LIPID PANEL SO April 24, 2016 ASSAY THYROID STIM HORMONE April 24, 2016 ASSAY OF TESTOSTERONE April 24, 2016 IMMUNIZATIONS No Known Immunizations
--- OUTSIDE RECORDS SUMMARY | 2017-07-16 15:15 | XMS REPORT ---
Author Author Zuleika Stevens Organization eClinicalWorks Address Unknown Phone Unavailable Care Team Providers Care Equipment Service Engineer Name Role Phone Zuleika Stevens CP Unavailable Allergies No Known Allergies Problems Problem Type Condition Code Onset Dates Condition Status Assessment Other chronic pain G89.29 Active Problem Chronic depression F32.9 Active Problem Mixed hyperlipidemia E78.2 Active Assessment URI (upper respiratory infection) J06.9 Active Assessment Generalized anxiety disorder F41.1 Active Problem Rash and other nonspecific skin eruption R21 Active Problem Shortness of breath R06.02 Active Problem pbx repairer current use of opiate analgesic Z79.891 Active Problem Generalized anxiety disorder F41.1 Active Problem Low back pain M54.5 Active Problem Neuropathy G62.9 Active Problem Other chronic pain G89.29 Active Medications Medication Code System Code Instructions Start Date End Date Status Dosage Oxycodone HCl [facility] [address]-29 15 MG Oral every 6 hrs Oct 07, 2013Nov 1 tablet as needed Lyrica [facility] [address]-10 200 MG Orally Twice a day Mar 07, [address] [facility] [address]-43 1 MG Orally four times a day Dec 17, 2015 1 tablet Results No Known Results Summary Purpose eClinicalWorks Submission
--- OUTSIDE RECORDS SUMMARY | 2017-07-16 15:15 | XMS REPORT ---
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
--- OUTSIDE RECORDS SUMMARY | 2017-07-16 15:17 | XMS REPORT ---
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
--- OUTSIDE RECORDS SUMMARY | 2017-07-16 15:17 | XMS REPORT ---
Author Author Tim Willis Organization eClinicalWorks Address Unknown Phone Unavailable Care Team Providers Care Drying Frame Operator Name Role Phone Tim Willis CP Unavailable Allergies No Known Allergies Problems Problem Type Condition ICD-9 Code Onset Dates Condition Status Assessment Generalized anxiety disorder 300.02 Active Problem Dysthymic disorder 300.4 Active Assessment Other chronic pain 338.29 Active Problem Back pain 724.5 Active Problem Mixed hyperlipidemia 272.2 Active Problem Tobacco use disorder 305.1 Active Problem Other chronic pain 338.29 Active Problem Depressive disorder, not elsewhere classified 311 Active Problem Generalized anxiety disorder 300.02 Active Problem 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 Medications Medication Code System Code Instructions Start Date End Date Status Dosage Oxycodone HCl [facility] [address]-05 15 MG Oral every 6 hrs Oct 07, 2013Nov 1 tablet as needed Alprazolam [facility] [address]-69 1 MG Orally four times a day Dec 04, 2014 1 tablet Results No Known Results Summary Purpose eClinicalWorks Submission
--- OUTSIDE RECORDS SUMMARY | 2017-07-16 15:19 | XMS REPORT ---
Author Author Zuleika Stevens [facility] eClinicalWorks Address Unknown Phone Unavailable Care Team Providers Care Boat Dispatcher Name Role Phone Zuleika Stevens Unavailable Allergies No Known Allergies Problems Problem Type Condition Code Onset Dates Condition Status Assessment Other chronic pain 338.29 Active Problem [...] Start Date End Date Status Dosage Xanax [facility] [address]-55 1 MG Oral 1 (one) QID PRN Oct 07, 2013 please fill 09/08/13supervising physician Dr. Coretta Stewart Alprazolam [facility] [address]-06 1 MG Orally four times a day September 03, 2014 1 tablet Oxycodone HCl [facility] [address]-37 15 MG Oral every 6 hrs Oct 07, 2013 September 03, 2014 1 tablet as needed Results No Known Results Summary Purpose eClinicalWorks Submission
--- OUTSIDE RECORDS SUMMARY | 2017-07-16 15:19 | XMS REPORT ---
Author Author Zuleika Stevens Organization e[employer] Address Unknown Phone Unavailable Care Team Providers Care Quality Control Expert Name Role Phone Zuleika Stevens CP Unavailable Allergies No Known Allergies Problems Problem Type Condition Code Onset Dates Condition Status Assessment Other chronic pain G89.29 Active Problem Chronic depression F32.9 Active Problem Mixed hyperlipidemia E78.2 Active Assessment Upper respiratory infection J06.9 Active Assessment Generalized anxiety disorder F41.1 Active Problem Rash and other nonspecific skin eruption R21 Active Problem Shortness of breath R06.02 Active Problem [facility] current use of opiate analgesic Z79.891 Active Problem Generalized anxiety disorder F41.1 Active Problem Low back pain M54.5 Active Problem Neuropathy G62.9 Active Problem Other chronic pain G89.29 Active Medications Medication Code System Code Instructions Start Date End Date Status Dosage Alprazolam [facility] [address]-89 1 MG Orally four times a day Oct 18, 2015 1 tablet Fluocinonide-E [facility] [address]-38 0.05 % Externally bid Mar 07, 2015 as directed Oxycodone HCl [facility] [address]-83 15 MG Oral every 6 hrs Oct 07, 2013Sep 1 tablet as needed Lyrica [facility] [address]-95 200 MG Orally Twice a day Mar 07, 2015 1 capsule Zithromax Z-Ángel [facility] [address]-04 250 MG Orally Once a day Sep 28, 2015 Oct 03, 2015 2 tablets on the first day, then 1 tablet daily for 4 days Lamisil [facility] [address]-18 250 MG Orally Once a day Mar 07, 2015 1 tablet Results No Known Results Summary Purpose eClinicalWorks Submission
--- OUTSIDE RECORDS SUMMARY | 2017-07-16 15:19 | XMS REPORT ---
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
[2017-07-16 15:20] LABS: BILIRUBIN,URINE NEGATIVE (NEGATIVE); CLARITY,URINE CLEAR; COLOR,URINE YELLOW; GLUCOSE, URINE (UA) NEGATIVE (NEGATIVE); KETONES,URINE NEGATIVE (NEGATIVE); LEUKOCYTE ESTERASE ,URINE 1+ (NEGATIVE); NITRITE,URINE NEGATIVE (NEGATIVE); PH,URINE 5 (5-9); PROTEIN,URINE 1+ (NEGATIVE); UROBILINOGEN,URINE NORMAL (NORMAL)
--- OUTSIDE RECORDS SUMMARY | 2017-07-16 15:25 | XMS REPORT ---
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
--- OUTSIDE RECORDS SUMMARY | 2017-07-16 15:25 | XMS REPORT ---
Author Author Zuleika Stevens [facility] Address [address] [place], [place] [address] Care Team Providers Care Psychologist Research Assistant Name Role Phone Zuleika Stevens Unavailable PROBLEMS Type Condition ICD9-CM Code [id number] Code Onset Dates Condition Status SNOMED Code Problem Mixed hyperlipidemia E78.2 Active 952451413 Problem Low back pain M54.5 Active 683938318 Problem Chronic depression F32.9 Active 565876022 Problem termite exterminator helper current use of opiate analgesic Z79.891 Active 891748278 Problem Rash and other nonspecific skin eruption R21 Active 414339570 Problem Other chronic pain G89.29 Active 94490299 Problem Generalized anxiety disorder F41.1 Active 44949220 Problem Shortness of breath R06.02 Active 104771778 Problem Neuropathy G62.9 Active 042499923 ALLERGIES Unknown Allergies SOCIAL HISTORY No smoking Hx information available PLAN OF CARE VITAL SIGNS MEDICATIONS Unknown Medications RESULTS No Results PROCEDURES No Known procedures IMMUNIZATIONS No Known Immunizations
--- OUTSIDE RECORDS SUMMARY | 2017-07-16 15:25 | XMS REPORT ---
Author Author Zuleika Stevens Organization eClinicalWorks Address Unknown Phone Unavailable Care Team Providers Care Secondary School Registrar Name Role Phone Zuleika Stevens CP Unavailable Allergies No Known Allergies Problems Problem Type Condition Code Onset Dates Condition Status Assessment Low back pain M54.5 Active Problem Chronic depression F32.9 Active Problem Mixed hyperlipidemia E78.2 Active Problem Rash and other nonspecific skin eruption R21 Active Problem Shortness of breath R06.02 Active Problem buttermaker helper current use of opiate analgesic Z79.891 Active Problem Generalized anxiety disorder F41.1 Active Problem Low back pain M54.5 Active Problem Neuropathy G62.9 Active Problem Other chronic pain G89.29 Active Medications Medication Code System Code Instructions Start Date End Date Status Dosage Oxycodone HCl [facility] [address]-65 15 MG Oral every 6 hrs Oct 07, 2013Dec 1 tablet as needed Results No Known Results Summary Purpose eClinicalWorks Submission
--- OUTSIDE RECORDS SUMMARY | 2017-07-16 15:26 | XMS REPORT ---
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
--- OUTSIDE RECORDS SUMMARY | 2017-07-16 15:26 | XMS REPORT ---
Author Lora Edouard [facility] eClinicalWorks Address Unknown Phone Unavailable Care Team Providers Care Second Hand Name Role Phone Lora Adan CP Unavailable Allergies No Known Allergies Problems [...] Date End Date Status Dosage Xanax [facility] [address]-24 1 MG Oral 1 (one) QID PRN Oct 07, 2013 please fill 09/08/13supervising physician Dr. Coretta Stewart Oxycodone HCl [facility] [address]-10 15 MG Oral every 6 hrs Oct 07, 2013June 1 tablet as needed Alprazolam [facility] [address]-17 1 MG Orally four times a day July 24, 2014 1 tablet Results No Known Results Summary Purpose eClinicalWorks Submission
[2017-07-16 15:28] LABS: WBC,URINE 0-2 /HPF
--- OUTSIDE RECORDS SUMMARY | 2017-07-16 15:28 | XMS REPORT ---
Author Author Zuleika Stevens [facility] eClinicalWorks Address Unknown Phone Unavailable Care Team Providers Care Operations Systems Specialist Name Role Phone Zuleika Stevens Unavailable Allergies No Known Allergies Problems Problem Type Condition ICD-9 Code Onset Dates Condition Status Assessment Back pain 724.5 Active Problem Drug withdrawal 292.0 Inactive Problem [...] Start Date End Date Status Dosage Xanax [facility] [address]-13 1 MG Oral 1 (one) QID PRN Oct 07, 2013 please fill 09/08/13supervising physician Dr. Coretta Stewart Oxycodone HCl [facility] [address]-40 15 MG Oral 1 (one) every six hours, as needed Oct 07, [address] Coretta Vidal [facility] [id number] 1 MG TAKE ONE TABLET BY MOUTH FOUR TIMES DAILY NEEDED Results No Known Results Summary Purpose eClinicalWorks Submission
--- OUTSIDE RECORDS SUMMARY | 2017-07-16 15:28 | XMS REPORT ---
Author Author Lora Adan [facility] Address [address] [place], [place] [id number] Care Team Providers Care Automatic Log Cut Off Sawyer Name Role Phone Lora Adan Unavailable PROBLEMS Type Condition ICD9-CM Code [id number] Code Onset Dates Condition Status SNOMED Code Problem Chronic depression F32.9 Active 384935050 Problem Low back pain M54.5 Active 705403540 Problem Mixed hyperlipidemia E78.2 Active 294352392 Problem Neuropathy G62.9 Active 782149502 Problem Shortness of breath R06.02 Active 765956217 Problem Generalized anxiety disorder F41.1 Active 77220442 Problem Other chronic pain G89.29 Active 16731929 Problem 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.891 Active 141372228 Problem Rash and other nonspecific skin eruption R21 Active 667116963 ALLERGIES No Information SOCIAL HISTORY Never Assessed PLAN OF CARE VITAL SIGNS MEDICATIONS Medication Instructions Dosage Frequency Start Date End Date Duration Status Oxycodone HCl 15 MG Orally every 6 hrs 1 tablet 6h Jan, 30 days Active Xanax 1 MG Orally QID 1 tablet 6h Jan, 30 days Active RESULTS No Results PROCEDURES No Known procedures IMMUNIZATIONS No Known Immunizations MEDICAL (GENERAL) HISTORY Type Description Date Medical History Other convulsions Medical History Impacted cerumen (Inactive) Medical History Dysuria (Inactive) Medical History Nausea with vomiting (Inactive)
--- OUTSIDE RECORDS SUMMARY | 2017-07-16 15:28 | XMS REPORT ---
Author Author Zuleika Stevens Organization eClinicalWorks Address Unknown Phone Unavailable Care Team Providers Care Head Loft Worker Name Role Phone Zuleika Stevens CP Unavailable Allergies No Known Allergies Problems Problem Type Condition Code Onset Dates Condition Status Assessment Generalized anxiety disorder F41.1 Active Problem Chronic depression F32.9 Active Problem Mixed hyperlipidemia E78.2 Active Problem Rash and other nonspecific skin eruption R21 Active Problem Shortness of breath R06.02 Active Problem [facility] current use of opiate analgesic Z79.891 Active Problem Generalized anxiety disorder F41.1 Active Problem Low back pain M54.5 Active Problem Neuropathy G62.9 Active Problem Other chronic pain G89.29 Active Medications Medication Code System Code Instructions Start Date End Date Status Dosage Lamisil [facility] [address]-38 250 MG Orally Once a day Mar 07, 2015 1 tablet Lyrica [facility] [address]-10 200 MG Orally Twice a day Mar 07, 2015 1 capsule Oxycodone HCl [facility] [address]-28 15 MG Oral every 6 hrs Oct 07, 2013June 1 tablet as needed Fluocinonide-E [facility] [address]-04 0.05 % Externally bid Mar 07, 2015 as directed Alprazolam [facility] [address]-03 1 MG Orally four times a day July 09, 2015 1 tablet Results No Known Results Summary Purpose eClinicalWorks Submission
--- OUTSIDE RECORDS SUMMARY | 2017-07-16 15:30 | XMS REPORT ---
Author Lora Edouard Organization [facility] Address [address] [place] [id number] Care Team Providers Care Lawn Service Manager Name Role Phone Lora Adan Unavailable PROBLEMS Type Condition ICD9-CM Code [id number] Code Onset Dates Condition Status SNOMED Code Problem Chronic depression F32.9 Active 553485549 Problem Low back pain M54.5 Active 690345499 Problem Mixed hyperlipidemia E78.2 Active 015827429 Problem Neuropathy G62.9 Active 832944859 Problem Shortness of breath R06.02 Active 069039211 Problem Generalized anxiety disorder F41.1 Active 63474493 Problem Other chronic pain G89.29 Active 94573655 Problem FDC current use of opiate analgesic Z79.891 Active 351423543 Problem Rash and other nonspecific skin eruption R21 Active 402889963 ALLERGIES No Information ENCOUNTERS Encounter Location Date Diagnosis [address] [address] Mar, [address] [address] Mar, [address] [address] Mar, Other chronic pain G89.29 and Generalized anxiety disorder F41.[address] [address] Feb, Other chronic pain G89.29 and Generalized anxiety disorder F41.[address] [address] Jan, Other chronic pain G89.29 and Generalized anxiety disorder F41.[address] [address] Dec, Other chronic pain G89.29 and Generalized anxiety disorder F41.[address] [address] Nov, Other chronic pain G89.29 and Generalized anxiety disorder F41.1 [facility] [address] [facility] [place] [address] Oct, Other chronic pain G89.29 ; Generalized anxiety disorder F41.1 and [facility] [address] [facility] [place] [address] Sep, Low back pain M54.5 and Generalized anxiety disorder F41.1 [facility] [address] [facility] [place] [address] Aug, [facility] [address] [facility] [place] [address] Aug, [facility] [address] [facility] [place] [address] Aug, Other chronic pain G89.29 [facility] [address] [facility] [place] [address] Aug, Generalized anxiety disorder F41.1 and Low back pain M54.5 [facility] [address] [facility] [place] [address] Jul, Generalized anxiety disorder F41.1 and Low back pain M54.5 [facility] [address] [facility] [place] [address] June, Generalized anxiety disorder F41.1 and Low back pain M54.5 [facility] [address] [place] [address] May, Generalized anxiety disorder F41.1 and Low back pain M54.5 [facility] [address] [facility] [place] [address] May, [facility] [address] [facility] [place] [address] Apr, [facility] [address] [facility] [place] [address] Apr, [facility] [address] [facility] [place] [address] Apr, Generalized anxiety disorder F41.1 and Low back pain M54.5 [facility] [address] [facility] [place] [address] Apr, [facility] [address] [place] [address] Apr, [facility] [address] [place] [address] Apr, Low back pain M54.5 ; FDC current use of opiate analgesic Z79.891 ; Chronic depression F32.9 ; Mixed hyperlipidemia E78.2 ; Generalized anxiety disorder F41.1 and Other fatigue R53.83 [facility] [address] [place] [address] Mar, [facility] [address] [place] [address] Mar, [facility] [address] [place] [address] Mar, Other chronic pain G89.29 and Generalized anxiety disorder F41.1 [facility] [address] [place] [address] Feb, Generalized anxiety disorder F41.1 and Other chronic pain G89.29 [facility] [address] [place] [address] Feb, [facility] [address] [place] [address] Feb, Sick R69 [facility] [address] [place] [address] Jan, [facility] [address] [place] [address] Jan, Generalized anxiety disorder F41.1 and Other chronic pain G89.29 [facility] [address] [place] [address] Dec, [facility] [address] [place] [address] Dec, Low back pain M54.5 and Generalized anxiety disorder F41.1 [facility] [address] [place] [address] Dec, [facility] [address] [place] [address] Dec, Low back pain M54.[address] [address] Nov, Generalized anxiety disorder F41.1 and Low back pain M54.[address] [address] 15 Oct, 2015 Other chronic pain G89.29 ; Generalized anxiety disorder F41.1 and URI (upper respiratory infection) J06.[address] [address] Oct, [facility] [address] [place] [phone] Sep, Low back pain M54.5 ; emt intermediate current use of opiate analgesic Z79.891 ; Generalized anxiety disorder F41.1 ; Chronic depression F32.9 ; Neuropathy G62.9 and URI (upper respiratory infection) J06.[address] [address] Sep, Other chronic pain G89.29 ; Generalized anxiety disorder F41.1 and Upper respiratory infection J06.[address] [address] Aug, [address] [address] Aug, [address] [address] Aug, [address] [address] Aug, [facility] [address] [place] [address] Aug, Other chronic pain G89.29 and Generalized anxiety disorder F41.[address] [address] June, Low back pain M54.5 and Generalized anxiety disorder F41.[address] [address] June, [address] [place] [address] June, Other chronic pain G89.29 and Generalized anxiety disorder F41.[address] [address] May, Flu-like symptoms R68.[address] [address] May, Generalized anxiety disorder F41.[address] [address] May, [address] [address] May, Other chronic pain G89.[address] [address] Apr, Generalized anxiety disorder F41.[address] [address] Mar, [facility] [address] [address] Mar, [address] [address] Mar, Other chronic pain G89.[address] [address] Mar, [address] [address] Mar, Generalized anxiety disorder F41.[address] [address] Mar, Other chronic pain G89.29 and Generalized anxiety disorder F41.1 [facility] [address] [place] [phone] Feb, FDC current use of opiate analgesic Z79.891 ; Other chronic pain G89.29 ; Generalized anxiety disorder F41.1 ; Low back pain M54.5 ; Chronic depression F32.9 ; Mixed hyperlipidemia E78.2 ; Rash and other nonspecific skin eruption R21 ; Shortness of breath R06.02 ; Neuropathy G62.9 and Fungal dermatitis B36.9 [facility] [address] [place] [address] Jan, Other chronic pain G89.29 and Generalized anxiety disorder F41.1 [facility] [address] [place] [address] Jan, Upper respiratory infection J06.9 and Rash R21 [facility] [address] [place] [address] Dec, Generalized anxiety disorder F41.1 and Other chronic pain G89.29 [facility] [address] [place] [address] Dec, [facility] [address] [place] [address] Nov, Other chronic pain G89.29 and Generalized anxiety disorder F41.1 [facility] [address] [place] [address] Oct, [facility] [address] [place] [address] Oct, Other chronic pain 338.29 and Generalized anxiety disorder 300.02 [facility] [address] [place] [address] Sep, [facility] [address] [place] [address] Sep, [facility] [address] [place] [address] Sep, Other chronic pain 338.29 and Generalized anxiety disorder 300.02 [facility] [address] [place] [address] Aug, [facility] [address] [place] [address] Aug, [facility] [address] [place] [address] Aug, [facility] [address] [place] [address] Aug, [facility] [address] [place] [address] Aug, [facility] [address] [place] [phone] Aug, Other chronic pain 338.29 ; Back pain 724.5 ; Dysthymic disorder 300.4 ; Generalized anxiety disorder 300.02 and Tobacco use disorder 305.1 [facility] [address] [place] [address] Jul, Other chronic pain 338.29 [facility] [address] [place] [address] Jul, Other chronic pain 338.29 and Generalized anxiety disorder 300.02 [facility] [address] [place] [address] Jul, [facility] [address] [place] [address] June, Other chronic pain 338.29 and Generalized anxiety disorder 300.02 [facility] [address] [place] [address] June, Other chronic pain 338.29 and Generalized anxiety disorder 300.02 [facility] [address] [phone] May, Back pain 724.5 [facility] [address] [place] [address] Apr, [facility] [address] [place] [address] Mar, [facility] [address] [place] [address] Mar, Other chronic pain 338.29 and Generalized anxiety disorder 300.02 [facility] [address] [place] [address] Feb, Other chronic pain 338.29 and Generalized anxiety disorder 300.02 [facility] [address] [id number] Dec, Other chronic pain 338.29 and Dysthymic disorder 300.4 [facility] [address] [place] [address] Nov, [facility] [address] [place] [address] Nov, Other chronic pain 338.29 UNKNOWN Nov, [facility] [address] [facility] [place] [address] Nov, [facility] [address] [facility] [place] [address] Oct, [facility] [place] [facility] [address] [facility] [address] [place], [place] [phone] Oct, Back pain 724.5 [facility] [address] [facility] [place] [phone] Oct, Other chronic pain 338.29 ; Dysthymic disorder 300.4 and Persistent disorder of initiating or maintaining sleep 307.42 [facility] [address] [facility] [place] [address] Oct, [facility] [address] [facility] [place] [address] Oct, [facility] [address] [facility] [place] [address] Oct, [facility] [address] [facility] [place] [address] Sep, Back pain, chronic 724.5 [facility] [place] [facility] [address] [place] [id number] Sep, [facility] [place] [facility] [address] [facility] [address] [place] [id number] Sep, [facility] [place] [facility] [address] [facility] [address] [place] [id number] June, [facility] [address] [facility] [place] [address] May, [facility] [address] [facility] [place] [address] May, [facility] [place] [facility] [address] [facility] [address] [place] [id number] Mar, [facility] [address] [place] [address] Dec, [facility] [address] [place] [address] June, [facility] [address] [facility] [place] [address] Apr, [facility] [address] [place] [address] Feb, [facility] [address] [place] [address] Oct, [facility] [address] [place] [address] Jul, [facility] [address] [place] [address] Feb, [facility] [address] [facility] [address] [place], [place] [phone] Nov, IMMUNIZATIONS No Known Immunizations SOCIAL HISTORY Never Assessed REASON FOR VISIT Lidocaine Cream PLAN OF CARE VITAL SIGNS MEDICATIONS Medication [...]
--- OUTSIDE RECORDS SUMMARY | 2017-07-16 15:31 | XMS REPORT ---
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
--- OUTSIDE RECORDS SUMMARY | 2017-07-16 15:32 | XMS REPORT ---
Author Author Zuleika Stevens Organization [employer] Address Unknown Phone Unavailable Care Team Providers Care Cloth Designer Name Role Phone Zuleika Stevens CP Unavailable [...]
--- OUTSIDE RECORDS SUMMARY | 2017-07-16 15:32 | XMS REPORT ---
Author Author Zuleika Stevens Organization [employer] Address Unknown Phone Unavailable Care Team Providers Care Strategic Communications Manager Name Role Phone Zuleika Stevens CP Unavailable [...]
--- OUTSIDE RECORDS SUMMARY | 2017-07-16 15:32 | XMS REPORT ---
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
--- OUTSIDE RECORDS SUMMARY | 2017-07-16 15:32 | XMS REPORT ---
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
--- OUTSIDE RECORDS SUMMARY | 2017-07-16 15:32 | XMS REPORT ---
Author Author Zuleika Stevens [facility] Address [address] [place], [place] [id number] Care Team Providers Care Knowledge Engineer Name Role Phone Zuleika Stevens Unavailable PROBLEMS Type Condition ICD9-CM Code KUL54-DS Code Onset Dates Condition Status SNOMED Code Problem Mixed hyperlipidemia E78.2 Active 157032780 Problem Low back pain M54.5 Active 395069318 Problem Chronic depression F32.9 Active 173116197 Problem control technician current use of opiate analgesic Z79.891 Active 151322370 Problem Rash and other nonspecific skin eruption R21 Active 773701803 Problem Other chronic pain G89.29 Active 01564861 Problem Generalized anxiety disorder F41.1 Active 90705554 Problem Shortness of breath R06.02 Active 788637197 Problem Neuropathy G62.9 Active 089441034 ALLERGIES Unknown Allergies SOCIAL HISTORY No smoking Hx information available PLAN OF CARE VITAL SIGNS MEDICATIONS Unknown Medications RESULTS No Results PROCEDURES No Known procedures IMMUNIZATIONS No Known Immunizations
--- OUTSIDE RECORDS SUMMARY | 2017-07-16 15:32 | XMS REPORT ---
Author Author Zuleika Stevens Organization [employer] Address Unknown Phone Unavailable Care Team Providers Care Deer Farm Worker Name Role Phone Zuleika Stevens CP Unavailable Allergies No Known Allergies Problems Problem Type Condition Code Onset Dates Condition Status Assessment Generalized anxiety disorder F41.1 Active Problem Chronic depression F32.9 Active Problem Mixed hyperlipidemia E78.2 Active Assessment Low back pain M54.5 Active Problem Rash and other nonspecific skin eruption R21 Active Problem Shortness of breath R06.02 Active Problem intermediate card tender current use of opiate analgesic Z79.891 Active Problem Generalized anxiety disorder F41.1 Active Problem Low back pain M54.5 Active Problem Neuropathy G62.9 Active Problem Other chronic pain G89.29 Active Medications Medication Code System Code Instructions Start Date End Date Status Dosage Lyrica [facility] [address]-88 200 MG Orally Twice a day Mar 07, 2015 1 capsule Oxycodone HCl [facility] [address]-36 15 MG Oral every 6 hrs Oct 07, 2013Dec 1 tablet as needed Alprazolam [facility] [address]-11 1 MG Orally four times a day Jan 16, 2016 1 tablet Results No Known Results Summary Purpose [employer] Submission
--- OUTSIDE RECORDS SUMMARY | 2017-07-16 15:32 | XMS REPORT ---
Author Author Adan Lora Organization [facility] Address [address] [place] [phone] Care Team Providers Care Anatomic Pathology Manager Name Role Phone Lora Adan Unavailable PROBLEMS Type Condition ICD9-CM Code ZWA93-CO Code Onset Dates Condition Status SNOMED Code Problem Chronic depression F32.9 Active 654403349 Problem Low back pain M54.5 Active 433758035 Problem Mixed hyperlipidemia E78.2 Active 709518998 Problem Neuropathy G62.9 Active 400731509 Problem Shortness of breath R06.02 Active 969343263 Problem Generalized anxiety disorder F41.1 Active 51594273 Problem Other chronic pain G89.29 Active 16873007 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 114810924 Problem Rash and other nonspecific skin eruption R21 Active 205918000 ALLERGIES No Information ENCOUNTERS Encounter Location Date Diagnosis [address] [address] May, Other chronic pain G89.29 and Generalized anxiety disorder F41.[address] [address] Apr, Other chronic pain G89.29 and Generalized anxiety disorder F41.[address] [address] Mar, [address] [address] Mar, [address] [address] Mar, Other chronic pain G89.29 and Generalized anxiety disorder F41.[address] [address] Feb, Other chronic pain G89.29 and Generalized anxiety disorder F41.[address] [place] [address] Jan, Other chronic pain G89.29 and Generalized anxiety disorder F41.1 [facility] [address] [place] [address] Dec, Other chronic pain G89.29 and Generalized anxiety disorder F41.1 [facility] [address] [place] [address] Nov, Other chronic pain G89.29 and Generalized anxiety disorder F41.1 [facility] [address] [place] [address] Oct, Other chronic pain G89.29 ; Generalized anxiety disorder F41.1 and Influenza vaccine needed Z23 [facility] [address] [place] [address] Sep, Low back pain M54.5 and Generalized anxiety disorder F41.1 [facility] [address] [place] [address] Aug, [facility] [address] [place] [address] Aug, [facility] [address] [place] [address] Aug, Other chronic pain G89.29 [facility] [address] [place] [address] Aug, Generalized anxiety disorder F41.1 and Low back pain M54.5 [facility] [address] [place] [address] Jul, Generalized anxiety disorder F41.1 and Low back pain M54.5 [facility] [address] [place] [address] June, Generalized anxiety disorder F41.1 and Low back pain M54.5 [facility] [address] [place] [address] May, Generalized anxiety disorder F41.1 and Low back pain M54.5 [facility] [address] [place] [address] May, [facility] [address] [place] [address] [place] [address] Apr, [facility] [address] [place] [address] Apr, [facility] [address] [place] [facility] [place] [address] Apr, Generalized anxiety disorder F41.1 and Low back pain M54.5 [facility] [address] [place] [address] Apr, [facility] [address] [place] [address] Apr, [facility] [address] [place] [address] Apr, Low back pain M54.5 ; [facility] current use of opiate analgesic Z79.891 ; Chronic depression F32.9 ; Mixed hyperlipidemia E78.2 ; Generalized anxiety disorder F41.1 and Other fatigue R53.83 [facility] [address] [place] [address] Mar, [facility] [address] [place] [address] Mar, [facility] [address] [place] [address] Mar, Other chronic pain G89.29 and Generalized anxiety disorder F41.1 [facility] [address] [place] [address] Feb, Generalized anxiety disorder F41.1 and Other chronic pain G89.29 [facility] [address] [place] [address] Feb, [facility] [address] [place] [address] Feb, Sick R69 [facility] [address] [place] [address] Jan, [facility] [address] [place] [address] Jan, Generalized anxiety disorder F41.1 and Other chronic pain G89.29 [facility] [address] [place] [address] 14 Dec, [address] [address] 14 Dec, 2015 Low back pain M54.5 and Generalized anxiety disorder F41.[address] [address] 09 Dec, [address] [address] Dec, Low back pain M54.[address] [address] Nov, Generalized anxiety disorder F41.1 and Low back pain M54.[address] [address] Oct, Other chronic pain G89.29 ; Generalized anxiety disorder F41.1 and URI (upper respiratory infection) J06.[address] [address] Oct, [facility] [address] [place] [phone] Sep, Low back pain M54.5 ; 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 ; Generalized anxiety disorder F41.1 ; Chronic depression F32.9 ; Neuropathy G62.9 and URI (upper respiratory infection) J06.[address] [address] Sep, Other chronic pain G89.29 ; Generalized anxiety disorder F41.1 and Upper respiratory infection J06.[address] [address] Aug, [address] [address] Aug, [address] [address] Aug, [address] [address] Aug, [address] [address] Aug, Other chronic pain G89.29 and Generalized anxiety disorder F41.1 [facility] [address] [place] [address] June, Low back pain M54.5 and Generalized anxiety disorder F41.1 [facility] [address] [place] [address] June, [facility] [address] [place] [address] June, Other chronic pain G89.29 and Generalized anxiety disorder F41.1 [facility] [address] [place] [address] May, Flu-like symptoms R68.89 [facility] [address] [place] [address] May, Generalized anxiety disorder F41.1 [facility] [address] [place] [address] May, [facility] [address] [place] [address] May, Other chronic pain G89.29 [facility] [address] [place] [address] Apr, Generalized anxiety disorder F41.1 [facility] [address] [place] [address] Mar, [facility] [address] [place] [address] Mar, [facility] [address] [place] [address] Mar, Other chronic pain G89.29 [facility] [address] [place] [address] Mar, [facility] [address] [place] [address] Mar, Generalized anxiety disorder F41.1 [facility] [address] [place] [address] Mar, Other chronic pain G89.29 and Generalized anxiety disorder F41.1 [facility] [address] [place] [phone] Feb, 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 ; Other chronic pain G89.29 ; Generalized anxiety disorder F41.1 ; Low back pain M54.5 ; Chronic depression F32.9 ; Mixed hyperlipidemia E78.2 ; Rash and other nonspecific skin eruption R21 ; Shortness of breath R06.02 ; Neuropathy G62.9 and Fungal dermatitis B36.[address] [address] Jan, Other chronic pain G89.29 and Generalized anxiety disorder F41.[address] [address] Jan, Upper respiratory infection J06.9 and Rash R21 [address] [address] Dec, Generalized anxiety disorder F41.1 and Other chronic pain G89.[address] [address] Dec, [address] [address] Nov, Other chronic pain G89.29 and Generalized anxiety disorder F41.[address] [address] Oct, [address] [address] Oct, Other chronic pain 338.29 and Generalized anxiety disorder 300.[address] [address] Sep, [address] [address] Sep, [address] [address] Sep, Other chronic pain 338.29 and Generalized anxiety disorder 300.[address] [address] Aug, [address] [address] Aug, [address] [place] [address] Aug, [facility] [address] [place] [address] Aug, [facility] [address] [place] [address] Aug, [facility] [address] [place] [phone] Aug, Other chronic pain 338.29 ; Back pain 724.5 ; Dysthymic disorder 300.4 ; Generalized anxiety disorder 300.02 and Tobacco use disorder 305.1 [facility] [address] [place] [address] Jul, Other chronic pain 338.29 [facility] [address] [place] [address] Jul, Other chronic pain 338.29 and Generalized anxiety disorder 300.02 [facility] [address] [place] [address] Jul, [facility] [address] [place] [address] June, Other chronic pain 338.29 and Generalized anxiety disorder 300.02 [facility] [address] [place] [address] June, Other chronic pain 338.29 and Generalized anxiety disorder 300.02 [facility] [address] [phone] May, Back pain 724.5 [facility] [address] [place] [address] Apr, [facility] [address] [place] [address] Mar, [facility] [address] [place] [address] Mar, Other chronic pain 338.29 and Generalized anxiety disorder 300.02 [facility] [address] [place] [address] Feb, Other chronic pain 338.29 and Generalized anxiety disorder 300.02 [facility] [address] [phone] Dec, Other chronic pain 338.29 and Dysthymic disorder 300.4 [facility] [address] [place] [address] Nov, [facility] [address] [place] [address] Nov, Other chronic pain 338.29 UNKNOWN Nov, [facility] [address] [place] [address] Nov, [facility] [address] [place] [address] Oct, [facility] [address] [phone] Oct, Back pain 724.5 [facility] [address] [facility] [address] [place] [phone] Oct, Other chronic pain 338.29 ; Dysthymic disorder 300.4 and Persistent disorder of initiating or maintaining sleep 307.42 [facility] [address] [place] [address] Oct, [facility] [address] [place] [address] Oct, [facility] [address] [place] [address] Oct, [facility] [address] [place] [address] Sep, Back pain, chronic 724.5 [facility] [address] [facility] [address] [place] [phone] Sep, [facility] [address] [facility] [address] [place] [phone] Sep, [facility] [address] [facility] [address] [place] [phone] June, [facility] [address] [place] [address] May, [facility] [address] [place] [address] May, [facility] [address] [facility] [address] [place] [phone] Mar, [facility] [address] [place] [address] Dec, [facility] [address] [place] [address] June, [facility] [address] [place] [address] Apr, [facility] [address] [place] [facility] [place] [address] Feb, [facility] [address] [place] [address] Oct, [facility] [address] [place] [facility] [place] [address] Jul, [facility] [address] [place] [address] Feb, [facility] [address] [facility] [address] [place] [phone] Nov, IMMUNIZATIONS No Known Immunizations SOCIAL HISTORY Never Assessed REASON FOR VISIT med refill PLAN OF CARE VITAL SIGNS MEDICATIONS Medication Instructions Dosage Frequency Start Date End Date Duration Status Xanax 1 MG Orally QID 1 tablet 6h 30 days Active Oxycodone HCl 15 MG Orally every 6 hrs 1 tablet 6h 30 days Active RESULTS No Results PROCEDURES No Known procedures INSTRUCTIONS MEDICATIONS ADMINISTERED No Known Medications MEDICAL (GENERAL) HISTORY Type Description Date Medical History Other convulsions Medical History Impacted cerumen (Inactive) Medical History Dysuria (Inactive) Medical History Nausea with vomiting (Inactive)
--- OUTSIDE RECORDS SUMMARY | 2017-07-16 15:33 | XMS REPORT ---
Author Author Eliceo Aldrich [facility] [employer] Address Unknown Phone Unavailable Care Team Providers Care Car Sales Representative Name Role Phone Eliceo Aldrich CP Unavailable Allergies No Known Allergies Problems Problem Type Condition ICD-9 Code Onset Dates Condition Status Assessment Dysthymic disorder 300.4 Active Assessment 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 Assessment Other chronic pain 338.29 Active [...] End Date Status Dosage Oxycodone HCl [facility] [address]-75 15 MG Oral 1 (one) every six hours, as needed Oct 07, [address] Coretta Stewart Xanax [facility] [address]-52 1 MG Oral 1 (one) QID PRN Oct 07, 2013 please fill 09/08/13supervising physician Dr. Coretta Stewart Procedures Procedure Coding System Code Date INJ KETOROLAC TROMETHAMINE 15 MG CPT-4 J1885 Nov 05, 2013 Flu vaccine no Preserv 3 and > CPT-4 35672 Nov 05, 2013 Results No Known Results Immunizations Vaccine Administration Date Flu vaccine no Preserv 3 and > Nov 05, 2013 Summary Purpose eClinicalWorks Submission
--- OUTSIDE RECORDS SUMMARY | 2017-07-16 15:33 | XMS REPORT ---
Author Lora Edouard 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 235915260 Problem Rash and other nonspecific skin eruption R21 Active 768754615 Problem Other chronic pain G89.29 Active 39239674 Problem Generalized anxiety disorder F41.1 Active 17133408 Problem Shortness of breath R06.02 Active 404000252 Problem Neuropathy G62.9 Active 089047175 ALLERGIES Substance Reaction Event Type Date Status diluadid lowers bp Non Drug Allergy Oct, Active SOCIAL HISTORY Never Assessed PLAN OF CARE Activity Details Follow Up 6 Months Reason: Future/Pending Procedure Immunization administration 1 vaccine VITAL SIGNS Height 71 in 2016-11-21 Weight 201.8 lbs 2016-11-21 Temperature 96.7 degrees Fahrenheit 2016-11-21 Heart Rate 58 /min 2016-11-21 Respiratory Rate 16 /min 2016-11-21 Oximetry 98 % 2016-11-21 BMI 28.14 kg/m2 2016-11-21 Blood pressure systolic 106 mm Hg 2016-11-21 Blood pressure diastolic 70 mm Hg 2016-11-21 MEDICATIONS Medication Instructions Dosage Frequency Start Date End Date Duration Status Xanax 1 MG Orally QID 1 tablet 6h 30 days Active Oxycodone HCl 15 MG Orally every 6 hrs 1 tablet 6h 30 days Active RESULTS No Results PROCEDURES Procedure Date Ordered Result Body Site IMMUNIZATION ADMIN Nov 21, 2016 FLU VAC NO PRSV 4 TOÑITO 3 YRS+ Nov 21, 2016 IMMUNIZATIONS Vaccine Route Administration Date Status Influenza Split 3 yrs > (QUAD) IM Intramuscular Nov 21, 2016 Administered MEDICAL (GENERAL) HISTORY Type Description Date Medical History Other convulsions Medical History Impacted cerumen (Inactive) Medical History Dysuria (Inactive) Medical History Nausea with vomiting (Inactive)
--- OUTSIDE RECORDS SUMMARY | 2017-07-16 15:33 | XMS REPORT ---
Author Author Zuleika Stevens Organization [employer] Address Unknown Phone Unavailable Care Team Providers Care Pre Billing Clinician Name Role Phone Zuleika Stevens CP Unavailable Allergies No Known Allergies Problems Problem Type Condition Code Onset Dates Condition Status Assessment Flu-like symptoms R68.89 Active Problem Chronic depression F32.9 Active Problem Mixed hyperlipidemia E78.2 Active Problem Rash and other nonspecific skin eruption R21 Active Problem Shortness of breath R06.02 Active Problem intermediate current use of opiate analgesic Z79.891 Active Problem Generalized anxiety disorder F41.1 Active Problem Low back pain M54.5 Active Problem Neuropathy G62.9 Active Problem Other chronic pain G89.29 Active Medications Medication Code System Code Instructions Start Date End Date Status Dosage Zithromax Z-Ángel [facility] [address]-84 250 MG Orally Once a day June 13, 2015 2 tablets on the first day, then 1 tablet daily for 4 days PredniSONE [facility] [address]-60 10 MG Orally 8tabs daily 7day 2, 6 day 3, 5 day 4, 4 day 5, 3 day 6, 2 day 7, 1 day 8 June 13, 2015 tab Results No Known Results Summary Purpose eClinicalWorks Submission
--- OUTSIDE RECORDS SUMMARY | 2017-07-16 15:33 | XMS REPORT ---
Author Author Zuleika Stevens Organization [employer] Address Unknown Phone Unavailable Care Team Providers Care Telegraphic Typewriter Mechanic Name Role Phone Zuleika Stevens CP Unavailable [...]
--- OUTSIDE RECORDS SUMMARY | 2017-07-16 15:33 | XMS REPORT ---
Author Author Zuleika tSevens Organization [employer] Address Unknown Phone Unavailable Care Team Providers Care Executor Of Estate Name Role Phone Zuleika Stevens CP Unavailable [...]
--- OUTSIDE RECORDS SUMMARY | 2017-07-16 15:33 | XMS REPORT ---
Author Author Zuleika Stevens [facility] eClinicalWorks Address Unknown Phone Unavailable Care Team Providers Care Railroad Car Repairman Name Role Phone Zuleika Stevens CP Unavailable Allergies, Adverse Reactions, Alerts Substance Reaction Event Type N.K.D.A. 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 Problem Generalized anxiety disorder F41.1 Active Problem Low back pain M54.5 Active Problem Neuropathy G62.9 Active Problem Other chronic pain G89.29 Active Assessment Neuropathy G62.9 Active Assessment Shortness of breath R06.02 Active Assessment Fungal dermatitis B36.9 Active Assessment Chronic depression F32.9 Active Assessment Low back pain M54.5 Active Assessment Rash and other nonspecific skin eruption R21 Active Assessment Generalized anxiety disorder F41.1 Active Assessment Mixed hyperlipidemia E78.2 Active Assessment Other chronic pain G89.29 Active Medications Medication Code System Code Instructions Start Date End Date Status Dosage Lyrica [facility] [address]-90 200 MG Orally Twice a day Mar 07, 2015 1 capsule Oxycodone HCl [facility] [address]-41 15 MG Oral every 6 hrs Oct 07, 2013Mar 1 tablet as needed Fluocinonide-E [facility] [address]-95 0.05 % Externally bid Mar 07, 2015 as directed Lamisil [facility] [address]-00 250 MG Orally Once a day Mar 07, 2015 1 tablet Alprazolam [facility] [address]-77 1 MG Orally four times a day Apr 14, 2015 1 tablet Procedures Procedure Coding System Code Date COMPLETE BLOOD COUNT W/AUTO DIFF CPT-4 64384 Mar 07, 2015 COMPREHEN METABOLIC PANEL CPT-4 04713 Mar 07, 2015 Billed by outside source CPT-4 NOBLL Mar 07, 2015 CHEST X-RAY CPT-4 39121 Mar 07, 2015 LIPID PANEL SO CPT-4 82612 Mar 07, 2015 Office Visit, Est Pt., Level 3 CPT-4 16412 Mar 07, 2015 Vital Signs Date/Time: Mar 07, 2015 Temperature 97.5 F Weight 196 lbs Height 71 in Respiratory Rate 16 /min Cardiac Monitoring Heart Rate 64 /min Blood Pressure Diastolic 56 mm Hg Blood Pressure Systolic 99 mm Hg BMI 27.33 Index Oximetry 92 % Results Name Result Date Reference Range Unit Abnormality Flag Lipid Panel 04025 ----HDL Cholesterol 45 60195264 >39 mg/dL ----VLDL Cholesterol Marcio 69 11847071 5-40 mg/dL H ----LDL Cholesterol Calc 128 48443191 0-99 mg/dL H ----Comment: SHAKER OUT [id number] ----Cholesterol, Total 242 26040433 100-199 mg/dL H ----Triglycerides 344 14272864 0-149 mg/dL H Metabolic Panel (14), Comprehensive (CMP) 54903 ----Globulin, Total 2.8 39535215 1.5-4.5 g/dL ----eGFR If Africn Am 113 [id number] >59 mL/min/1.73 ----eGFR If NonAfricn Am 98 90069187 >59 mL/min/1.73 ----Albumin, Serum 4.2 50479974 3.5-5.5 g/dL ----Sodium, Serum 140 20150307 134-144 mmol/L ----Protein, Total, Serum 7.0 20738108 6.0-8.5 g/dL ----BUN/Creatinine Ratio 22 20150307 9-20 H ----Calcium, Serum 9.2 18267553 8.7-10.2 mg/dL ----AST (SGOT) 20 20150307 0-40 IU/L ----Glucose, Serum 68 44611746 65-99 mg/dL ----Alkaline Phosphatase, S 39 20150307 39-117 IU/L ----Bilirubin, Total 0.3 88087997 0.0-1.2 mg/dL ----Creatinine, Serum 0.86 03755513 0.76-1.27 mg/dL ----A/G Ratio 1.5 20150307 1.1-2.5 ----BUN 19 20150307 6-24 mg/dL ----Carbon Dioxide, Total 23 20150307 18-29 mmol/L ----ALT (SGPT) 18 20150307 0-44 IU/L ----Potassium, Serum 4.3 20150307 3.5-5.2 mmol/L ----Chloride, Serum 101 20150307 97-108 mmol/L Opioid/Opiate Agreement (Annual) Complete Blood Count (CBC) w/ Differential 33323 ----MCHC 33.5 20150307 31.5-35.7 g/dL ----MCH 29.4 20150307 26.6-33.0 pg ----Platelets 282 20150307 150-379 x10E3/uL ----RDW 14.1 20150307 12.3-15.4 % ----Baso (Absolute) 0.0 20150307 0.0-0.2 x10E3/uL ----Immature Granulocytes 0 20150307 % ----Immature Grans (Abs) 0.0 65573904 0.0-0.1 x10E3/uL ----NRBC SHAKER OUT 20150307 ----Lymphs 40 20150307 % ----Monocytes 9 20150307 % ----Neutrophils 49 20150307 % ----Immature Cells SHAKER OUT 20150307 ----Hematocrit 44.5 20150307 37.5-51.0 % ----Neutrophils (Absolute) 3.5 20150307 1.4-7.0 x10E3/uL ----MCV 88 20150307 79-97 fL ----RBC 5.06 20150307 4.14-5.80 x10E6/uL ----Eos 2 53541742 % ----Basos 0 47380638 % ----Hemoglobin 14.9 42780954 12.6-17.7 g/dL ----Hematology Comments: SHAKER OUT 20150307 ----Eos (Absolute) 0.2 10710283 0.0-0.4 x10E3/uL ----WBC 7.1 20150307 3.4-10.8 x10E3/uL ----Lymphs (Absolute) 2.8 20150307 0.7-3.1 x10E3/uL ----Monocytes(Absolute) 0.7 20150307 0.1-0.9 x10E3/uL QMP Plus D/L (urine) Chest X-ray PA and lateral (CXR) Summary Purpose eClinicalWorks Submission
--- OUTSIDE RECORDS SUMMARY | 2017-07-16 15:33 | XMS REPORT ---
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 866463158 Problem Rash and other nonspecific skin eruption R21 Active 273522052 Problem Other chronic pain G89.29 Active 06946155 Problem Generalized anxiety disorder F41.1 Active 51167531 Problem Shortness of breath R06.02 Active 068178837 Problem Neuropathy G62.9 Active 749735130 ALLERGIES Unknown Allergies SOCIAL HISTORY No smoking Hx information available PLAN OF CARE VITAL SIGNS MEDICATIONS Medication Instructions Dosage Frequency Start Date End Date Duration Status Oxycodone HCl 15 MG Oral every 6 hrs 1 tablet as needed 6h Sep, Aug, 30 days Active Alprazolam 1 MG Orally four times a day 1 tablet 6h Aug, 30 days Active RESULTS No Results PROCEDURES No Known procedures IMMUNIZATIONS No Known Immunizations
--- OUTSIDE RECORDS SUMMARY | 2017-07-16 15:33 | XMS REPORT ---
Author Author Zuleika Stevens Organization [employer] Address Unknown Phone Unavailable Care Team Providers Care Legislative Analyst Name Role Phone Zuleika Stevens CP [...] Date End Date Status Dosage Oxycodone HCl [facility] [address]-92 15 MG Oral every 6 hrs Oct 07, 2013 Oct 29, 2014 1 tablet as needed Alprazolam [facility] [address]-18 1 MG Orally four times a day Oct 29, 2014 1 tablet Results No Known Results Summary Purpose [employer] Submission
--- OUTSIDE RECORDS SUMMARY | 2017-07-16 15:33 | XMS REPORT ---
Author Author Zuleika Stevens Organization [employer] Address Unknown Phone Unavailable Care Team Providers Care Clinical Support Nurse Name Role Phone Zuleika Stevens CP Unavailable Allergies No Known Allergies Problems Problem Type Condition Code Onset Dates Condition Status Problem Dysthymic disorder 300.4 Active Problem Other chronic pain 338.29 Active Problem Depressive disorder, not elsewhere classified 311 Active Problem Generalized anxiety disorder F41.1 Active Problem Tobacco use disorder 305.1 Active Problem Other chronic pain G89.29 Active Problem Generalized anxiety disorder 300.02 Active Problem 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 Problem Back pain 724.5 Active Problem Mixed hyperlipidemia 272.2 Active Medications No Known Medications Results No Known Results Summary Purpose [employer] Submission
--- OUTSIDE RECORDS SUMMARY | 2017-07-16 15:33 | XMS REPORT ---
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
--- OUTSIDE RECORDS SUMMARY | 2017-07-16 15:34 | XMS REPORT | Continuity of Care Document ---
Author Author [facility] Address Unknown Phone Unavailable Allergies Active Description Code Type Severity Reaction Onset Reported/Identified Relationship to Patient Clinical Status Yes NKANo Known Allergies NKA Miscellaneous Allergy Unknown N/A 02/18/2006 Yes hydromorphone [id number] Drug Allergy Unknown N/A 11/24/2009 Yes Dilaudid Drug Allergy 03/13/2011 Yes Dilaudid Drug Allergy N/A N/A 03/13/2011 Medications There is no data. Problems Date Dx Coded Attending Type Code Diagnosis Diagnosed By 11/04/2007 465.9 UPPER RESPIRATORY INFECTION 11/04/2007 MADL MAGISTRATE ASSISTANT, SHAKILA L 465.9 UPPER RESPIRATORY INFECTION 11/04/2007 MADL MAGISTRATE ASSISTANT, SHAKILA L 465.9 UPPER RESPIRATORY INFECTION 05/07/2008 783.1 WEIGHT GAIN ABNORMAL 05/07/2008 MADL MAGISTRATE ASSISTANT, SHAKILA L 783.1 WEIGHT GAIN ABNORMAL 05/07/2008 MADL MAGISTRATE ASSISTANT, SHAKILA L 783.1 WEIGHT GAIN ABNORMAL 03/13/2011 070.70 HEPATITIS C, UNSPEC 03/13/2011 V05.3 HEP A (ADULT) DX 03/13/2011 MADL MAGISTRATE ASSISTANT, SHAKILA L 070.70 HEPATITIS C, UNSPEC 03/13/2011 MADL MAGISTRATE ASSISTANT, SHAKILA L V05.3 HEP A (ADULT) DX 03/13/2011 MADL MAGISTRATE ASSISTANT, SHAKILA L 070.70 HEPATITIS C, UNSPEC 03/13/2011 MADL MAGISTRATE ASSISTANT, SHAKILA L V05.3 HEP A (ADULT) DX 04/29/2012 Ot 292.0 DRUG WITHDRAWAL 04/29/2012 Ot 304.81 COMB DRUG DEP NEC-CONTIN 09/13/2013 SIRENA BAKER, ONEYDA Loera Ot 300.00 ANXIETY STATE NOS 09/13/2013 SIRENA BAKER, ONEYDA Loera Ot 305.70 AMPHETAMINE ABUSE-UNSPEC 09/13/2013 SIRENA BAKER, ONEYDA Loera Ot 786.59 CHEST PAIN NEC 10/11/2013 DON ACEVEDO APRNA L 781.1 DISTURBANCES OF SENSATION OF SMELL AND TASTE 10/11/2013 DON ACEVEDO APRNA L 781.1 DISTURBANCES OF SENSATION OF SMELL AND TASTE 10/28/2013 JULESL DON JIMENEZA L 300.00 ANXIETY UNSPEC 10/28/2013 DON ACEVEDO APRNA L 461.9 SINUSITIS ACUTE 10/28/2013 JULESL MAGISTRATE ASSISTANTLATISHASHAKILA L 724.2 BACK PAIN, LOWER 05/21/2016 CAL DELEON MD Ot 721.0 CERVICAL SPONDYLOSIS 05/21/2016 CAL DELEON MD Ot 721.2 THORACIC SPONDYLOSIS 05/21/2016 CAL DELEON MD Ot 721.3 LUMBOSACRAL SPONDYLOSIS 05/21/2016 CAL DELEON MD Ot 738.4 ACQ SPONDYLOLISTHESIS 05/21/2016 CAL DELEON MD Ot 721.0 CERVICAL SPONDYLOSIS 05/21/2016 CAL DELEON MD Ot 721.2 THORACIC SPONDYLOSIS 05/21/2016 CAL DELEON MD Ot 721.3 LUMBOSACRAL SPONDYLOSIS 05/21/2016 CAL DELEON MD Ot 738.4 ACQ SPONDYLOLISTHESIS 05/21/2016 CAL DELEON MD Ot 721.0 CERVICAL SPONDYLOSIS 05/21/2016 CAL DELEON MD Ot 721.2 THORACIC SPONDYLOSIS 05/21/2016 CAL DELEON MD Ot 721.3 LUMBOSACRAL SPONDYLOSIS 05/21/2016 CAL DELEON MD Ot 738.4 ACQ SPONDYLOLISTHESIS 05/21/2016 CAL DELEON MD Ot 721.0 CERVICAL SPONDYLOSIS 05/21/2016 CAL DELEON MD Ot 721.2 THORACIC SPONDYLOSIS 05/21/2016 CAL DELEON MD Ot 721.3 LUMBOSACRAL SPONDYLOSIS 05/21/2016 CAL DELEON MD Ot 738.4 ACQ SPONDYLOLISTHESIS 05/22/2016 Ot 292.0 DRUG WITHDRAWAL 05/22/2016 Ot 304.81 COMB DRUG DEP NEC-CONTIN 05/22/2016 KEANU, HIRAM D APPLICATION SECURITY ARCHITECT Ot E78.2 MIXED HYPERLIPIDEMIA 05/22/2016 KEANU, HIRAM D APPLICATION SECURITY ARCHITECT Ot R53.83 OTHER FATIGUE 05/22/2016 KEANU, HIRAM D APPLICATION SECURITY ARCHITECT Ot Z79.891 WOOL TAMPER (CURRENT) USE OF OPIATE ANALGE 05/22/2016 KEANUHIRAM APPLICATION SECURITY ARCHITECT Ot E78.2 MIXED HYPERLIPIDEMIA 05/22/2016 KEANU, HIRAM Hardy APPLICATION SECURITY ARCHITECT Ot R53.83 OTHER FATIGUE 05/22/2016 KEANU, HIRAM Hardy APPLICATION SECURITY ARCHITECT Ot Z79.891 ALF (CURRENT) USE OF OPIATE ANALGE 05/28/2016 KEANUHIRAM RAYGOZA APPLICATION SECURITY ARCHITECT Ot E78.2 MIXED HYPERLIPIDEMIA 05/28/2016 KEANU, HIRAM Hardy APPLICATION SECURITY ARCHITECT Ot R53.83 OTHER FATIGUE 05/28/2016 KEANU, HIRAM Hardy APPLICATION SECURITY ARCHITECT Ot Z79.891 WOOL TAMPER (CURRENT) USE OF OPIATE ANALGE 05/28/2016 CAL DELEON MD Ot 721.0 CERVICAL SPONDYLOSIS 05/28/2016 CAL DELEON MD Ot 721.2 THORACIC SPONDYLOSIS 05/28/2016 CAL DELEON MD Ot 721.3 LUMBOSACRAL SPONDYLOSIS 05/28/2016 CAL DELEON MD Ot 738.4 ACQ SPONDYLOLISTHESIS 05/28/2016 KEANUHIRAM RAYGOZA APPLICATION SECURITY ARCHITECT Ot E78.2 MIXED HYPERLIPIDEMIA 05/28/2016 KEANUHIRAM RAYGOZA APPLICATION SECURITY ARCHITECT Ot R53.83 OTHER FATIGUE 05/28/2016 HIRAM COLUNGA APPLICATION SECURITY ARCHITECT Ot Z79.891 WOOL TAMPER (CURRENT) USE OF OPIATE ANALGE 05/28/2016 CAL DELEON MD Ot 721.0 CERVICAL SPONDYLOSIS 05/28/2016 CAL DELEON MD Ot 721.2 THORACIC SPONDYLOSIS 05/28/2016 CAL DELEON MD Ot 721.3 LUMBOSACRAL SPONDYLOSIS 05/28/2016 CAL DELEON MD Ot 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.4 ACQ SPONDYLOLISTHESIS Procedures Code [place] [address] ROUTINE VENIPUNCTURE 10/11/2013 77895 VIT B 12 10/11/2013 36081 MAGNESIUM 10/11/2013 59895 H PYLORI (RML) 10/11/2013 66223 HIV ANTIBODIES (RML) 10/11/2013 19423 HEP C PCR QUANT (SERIAL) 10/11/2013 25638 CBC 10/11/2013 6800166 GFR CALC (RESULT ONLY) 10/11/2013 23612 CMP 10/11/2013 Results Test Result Range Automated blood complete blood count (hemogram) panel - 05/21/16 10:10 Blood leukocytes automated count (number/volume) 7.0 10*3/uL 4.3-11.0 Blood erythrocytes automated count (number/volume) 5.15 10*6/uL 4.35-5.85 Venous blood hemoglobin measurement (mass/volume) 15.8 g/dL 13.3-17.7 Blood hematocrit (volume fraction) 46 % 40-54 Automated erythrocyte mean corpuscular volume 88 [foz_us] 80-99 Automated erythrocyte mean corpuscular hemoglobin (mass per erythrocyte) 31 pg 25-34 Automated erythrocyte mean corpuscular hemoglobin concentration measurement ( mass/volume) 35 g/dL 32-36 Automated erythrocyte distribution width ratio 13.6 % 10.0-14.5 Automated blood platelet count (count/volume) 286 10*3/uL 130-400 Automated blood platelet mean volume measurement 9.2 [foz_us] 7.4-10.4 Comprehensive metabolic panel - 05/21/16 10:10 Serum or plasma sodium measurement (moles/volume) 139 mmol/L 135-145 Serum or plasma potassium measurement (moles/volume) 4.5 mmol/L 3.6-5.0 Serum or plasma chloride measurement (moles/volume) 104 mmol/L 98-107 Carbon dioxide 27 mmol/L 21-32 Serum or plasma anion gap determination (moles/volume) 8 mmol/L 5-14 Serum or plasma urea nitrogen measurement (mass/volume) 25 mg/dL 7-18 Serum or plasma creatinine measurement (mass/volume) 0.94 mg/dL 0.60-1.30 Serum or plasma urea nitrogen/creatinine mass ratio 27 NRG Serum or plasma creatinine measurement with calculation of estimated glomerular filtration rate > NRG Serum or plasma glucose measurement (mass/volume) 71 mg/dL 70-105 Serum or plasma calcium measurement (mass/volume) 9.5 mg/dL 8.5-10.1 Serum or plasma total bilirubin measurement (mass/volume) 0.5 mg/dL 0.1-1.0 Serum or plasma alkaline phosphatase measurement (enzymatic activity/volume) 35 U/L 40-136 Serum or plasma aspartate aminotransferase measurement (enzymatic activity/ volume) 17 U/L 5-34 Serum or plasma alanine aminotransferase measurement (enzymatic activity/volume ) 18 U/L 0-55 Serum or plasma protein measurement (mass/volume) 6.5 g/dL 6.4-8.2 Serum or plasma albumin measurement (mass/volume) 3.9 g/dL 3.2-4.5 Lipid 1996 panel - 05/21/16 10:10 Serum or plasma triglyceride measurement (mass/volume) 356 mg/dL <150 Serum or plasma cholesterol measurement (mass/volume) 238 mg/dL < 200 Serum or plasma cholesterol in HDL measurement (mass/volume) 42 mg/ dL 40-60 Cholesterol in LDL [mass/volume] in serum or plasma by direct assay 154 mg/dL 1-129 Serum or plasma cholesterol in VLDL measurement (mass/volume) 71 mg/ dL 5-40 THYROID STIMULATING HORMONE - 05/21/16 10:10 THYROID STIMULATING HORMONE 3.89 u[iU]/mL 0.35-4.94 Serum or plasma thyroxine (T4) free measurement (mass/volume) - 05/21/16 10:10 Serum or plasma thyroxine (T4) free measurement (mass/volume) 0.84 ng/dL 0.70-1.48 Urine drug screening test - 05/21/16 10:10 Urine amphetamines detection by screening method Negative NRG Urine creatinine measurement (mass/volume) 226 mg/dL NRG Urine drug screening test POSITIVE NRG Urine acetaminophen measurement (mass/volume) POSITIVE NRG Urine barbiturates detection by screening method Negative NRG Urine benzodiazepines measurement by screening method (mass/volume) POSITIVE NRG Cocaine [mass/volume] in urine Negative NRG Ethanol [mass/volume] in urine Negative NRG Serum or plasma 0-zdymmsffmt-8,1-shvamltq-6,3-diphenylpyrrolidine (eddp) detection Negative NRG Urine opiates detection POSITIVE NRG Urine phencyclidine (PCP) detection Negative NRG Propoxyphene [mass/volume] in urine Negative NRG Urine salicylates measurement (mass/volume) Negative NRG Urine tetrahydrocannabinol detection by screening method Negative NRG TESTOSTERONE FREE TOTAL MALE - 05/21/16 10:10 Testosterone total 399.0 % 300.0-890.0 Testosterone free [mass or moles/volume] in serum or plasma 65.7 pg/ mL 47.0-244.0 Human immunodeficiency virus (HIV) type 1 and 2 antibody detection - 05/21/16 10:10 Serum HIV 1+2 antibody detection by immunoblot Non-Reactive Non-Reactive Interpretation of HIV-1 and HIV-2 antibody assay See Footnote NRG Encounters ACCT No. Visit Date/Time Discharge Status Pt. Type Provider Facility Loc./Unit Complaint [id number] 10/28/2013 15:48:00 10/28/2013 23:59:59 CLS Outpatient JULESDarron MAGISTRATE ASSISTANT, SHAKILA Darron [id number] 10/11/2013 10:19:00 10/11/2013 23:59:59 CLS Outpatient JULESDarron MAGISTRATE ASSISTANT, SHAKILA L [id number] 05/01/2012 08:32:00 05/01/2012 23:59:59 CLS Outpatient [id number] 02/14/2017 17:20:00 02/14/2017 23:59:59 CLS Outpatient ARNOLD SHANELLE[facility] [id number] 05/21/2016 09:29:00 05/21/2016 23:59:59 CLS Outpatient HIRAM COLUNGA [facility] LAB MIXED HYPERLIPIDEMIA,FATIGUE,Z20.89 [id number] 10/29/2013 12:32:00 10/29/2013 23:59:59 CLS Outpatient CAL DELEON MD [facility] RAD CHRONIC BACK PAIN [id number] 09/13/2013 04:09:00 09/13/2013 06:07:00 DIS Emergency SIRENA BAKER, ONEYDA Loera [facility] ER MULTIPLE COMPLAINTS [id number] 04/29/2012 20:42:00 Document Registration
[2017-07-16 15:36] LABS: AMPHETAMINE SCREEN, URINE NEGATIVE (NEGATIVE); BARBITURATE SCREEN URINE NEGATIVE (NEGATIVE); BENZODIAZEPINES SCREEN URINE POSITIVE (NEGATIVE); CANNABINOID SCREEN, URINE NEGATIVE (NEGATIVE); COCAINE SCREEN URINE NEGATIVE (NEGATIVE); METHADONE STAT NEGATIVE (NEGATIVE); METHAMPHETAMINE SCREEN URINE S NEGATIVE (NEGATIVE); OPIATE SCREEN URINE NEGATIVE (NEGATIVE); OXYCODONE STAT POSITIVE (NEGATIVE); PROPOXYPHENE STAT NEGATIVE (NEGATIVE); TRICYCLIC ANTIDEPRESSANTS SCRE NEGATIVE (NEGATIVE)
--- NOTE | 2017-07-16 15:39 | Diagnostic Imaging Report ---
PROCEDURE: CT abdomen and pelvis with contrast. TECHNIQUE: Multiple contiguous axial images were obtained through the abdomen and pelvis after administration of intravenous contrast. INDICATION: Right-sided abdominal pain. COMPARISON: Comparison is made with prior CT from 11/24/2009. FINDINGS: The lung bases are clear. There are multiple circumscribed low-density lesions within the liver, suggestive of cysts. The largest is in the inferior right lobe measuring 2.8 cm. The cysts have increased in size and number since the CT from 2009. The gallbladder is unremarkable. The pancreas and spleen are unremarkable. No adrenal mass is detected. The kidneys are unremarkable. The aorta is nonaneurysmal. The visualized small and large bowel loops appear to be normal caliber, without evidence of obstruction. There is sigmoid diverticulosis without evidence of acute diverticulitis. There does appear to be a fat-containing hernia in the right groin. The appendix is near this location, but the appendix is not inflamed. No free fluid or fluid collection is identified. There is no free air. Bladder is decompressed. IMPRESSION: 1. Increase in size and number of multiple hepatic cysts since prior CT from 2009. 2. Fat-containing right inguinal hernia. 3. Uncomplicated diverticulosis. Dictated by: Dictated on workstation # [id number]
[2017-07-16 15:53] VITALS: BP 119/69
[2017-07-24] MEDS ORDERED: DOCU-143 PO (10:19)
== END 2017-07-16 15:53 | disposition home or self-care (01) ==
LOC: EDUNIT# 14:14 → ER 14:17
DX: K40.90 Unilateral inguinal hernia, without obstruction or gangrene, not specified as recurrent (principal); F41.9 Anxiety disorder, unspecified; Z87.19 Personal history of other diseases of the digestive system; Z88.8 Allergy status to other drugs, medicaments and biological substances
CPT/HCPCS: 36415; 74177; 80053; 80306; 81000; 85025; 96374

== ENCOUNTER 2017-07-22 06:05 | Outpatient (CLI) | payer SELFPAY ==
[~2017-07-22] VITALS: Ht 180.3 cm; Wt 86.2 kg
[2017-07-22] MEDS ORDERED: OXYC15TA79 PO (09:34)
[2017-07-22] MEDS ORDERED: ALPR1TAB7 PO (09:34)
== END 2017-07-22 09:41 ==
LOC: PREOP 06:05
PROVIDERS: ATTEND Surgery
DX: Z01.818 Encounter for other preprocedural examination (principal); K40.90 Unilateral inguinal hernia, without obstruction or gangrene, not specified as recurrent

== ENCOUNTER 2017-07-24 07:54 | Day surgery (SDC) | payer OTHER ==
[~2017-07-24] VITALS: Ht 180.3 cm; Wt 86.2 kg
[~2017-07-24 07:54] MED LIST changes: +ALPR1TAB7 PO; +OXYC15TA79 PO
--- OUTSIDE RECORDS SUMMARY | 2017-07-24 07:58 | XMS REPORT | Clinical Summary ---
Author Author [facility] Organization [facility] Address Unknown Phone Unavailable Care Team Providers Care Spike Driver Name Role Phone Macy Marie PCP Source Comments Some departments are not documenting in the electronic medical record. If you do not see the information that you expected, contact Release of Information in the Health Information Management department at [phone] for further assistance in locating additional records.[facility] Allergies Not on File Current Medications [...]
--- OUTSIDE RECORDS SUMMARY | 2017-07-24 08:03 | XMS REPORT | Continuity of Care Document ---
Author Author [facility] Address Unknown Phone Unavailable Allergies Active Description Code Type Severity Reaction Onset Reported/Identified Relationship to Patient Clinical Status Yes NKANo Known Allergies NKA Miscellaneous Allergy Unknown N/A 02/18/2006 Yes hydromorphone [id number] Drug Allergy Unknown N/A 11/24/2009 Yes Dilaudid Drug Allergy 03/13/2011 Yes Dilaudid Drug Allergy N/A N/A 03/13/2011 Medications There is no data. Problems Date Dx Coded Attending Type Code Diagnosis Diagnosed By 11/04/2007 465.9 UPPER RESPIRATORY INFECTION 11/04/2007 MADL FINANCIAL REPORTING DIRECTOR, SHAKILA L 465.9 UPPER RESPIRATORY INFECTION 11/04/2007 MADL FINANCIAL REPORTING DIRECTOR, SHAKILA L 465.9 UPPER RESPIRATORY INFECTION 05/07/2008 783.1 WEIGHT GAIN ABNORMAL 05/07/2008 MADL FINANCIAL REPORTING DIRECTOR, SHAKILA L 783.1 WEIGHT GAIN ABNORMAL 05/07/2008 MADL FINANCIAL REPORTING DIRECTOR, SHAKILA L 783.1 WEIGHT GAIN ABNORMAL 03/13/2011 070.70 HEPATITIS C, UNSPEC 03/13/2011 V05.3 HEP A (ADULT) DX 03/13/2011 MADL FINANCIAL REPORTING DIRECTOR, SHAKILA L 070.70 HEPATITIS C, UNSPEC 03/13/2011 MADL FINANCIAL REPORTING DIRECTOR, SHAKILA L V05.3 HEP A (ADULT) DX 03/13/2011 MADL FINANCIAL REPORTING DIRECTOR, SHAKILA L 070.70 HEPATITIS C, UNSPEC 03/13/2011 MADL FINANCIAL REPORTING DIRECTOR, SHAKILA L V05.3 HEP A (ADULT) DX [...] APRNA L 461.9 SINUSITIS ACUTE 10/28/2013 JULESL FINANCIAL REPORTING DIRECTORLATISHASHAKILA L 724.2 BACK PAIN, LOWER 05/21/2016 CAL [...] DELEON MD Ot 721.0 CERVICAL SPONDYLOSIS 05/21/2016 CLA DELEON MD Ot 721.2 THORACIC SPONDYLOSIS 05/21/2016 CAL DELEON MD Ot 721.3 LUMBOSACRAL SPONDYLOSIS 05/21/2016 CAL DELEON MD Ot 738.4 ACQ SPONDYLOLISTHESIS 05/22/2016 Ot 292.0 DRUG WITHDRAWAL 05/22/2016 Ot 304.81 COMB DRUG DEP NEC-CONTIN 05/22/2016 KEANU, HIRAM D IT SENIOR SOFTWARE ENGINEER JAVA Ot E78.2 MIXED HYPERLIPIDEMIA 05/22/2016 KEANU, HIRAM D IT SENIOR SOFTWARE ENGINEER JAVA Ot R53.83 OTHER FATIGUE 05/22/2016 KEANU, HIRAM D IT SENIOR SOFTWARE ENGINEER JAVA Ot Z79.891 REGIONAL CLIMATE CHANGE ANALYST (CURRENT) USE OF OPIATE ANALGE 05/22/2016 KEANU, HIRAM D IT SENIOR SOFTWARE ENGINEER JAVA Ot E78.2 MIXED HYPERLIPIDEMIA 05/22/2016 KEANU, HIRAM D IT SENIOR SOFTWARE ENGINEER JAVA Ot R53.83 OTHER FATIGUE 05/22/2016 KEANU, HIRAM D IT SENIOR SOFTWARE ENGINEER JAVA Ot Z79.891 CORRECTION (CURRENT) USE OF OPIATE ANALGE 05/28/2016 KEANU, HIRAM D IT SENIOR SOFTWARE ENGINEER JAVA Ot E78.2 MIXED HYPERLIPIDEMIA 05/28/2016 KEANU, HIRAM D IT SENIOR SOFTWARE ENGINEER JAVA Ot R53.83 OTHER FATIGUE 05/28/2016 KEANU, HIRAM D IT SENIOR SOFTWARE ENGINEER JAVA Ot Z79.891 REGIONAL CLIMATE CHANGE ANALYST (CURRENT) USE OF OPIATE ANALGE 05/28/2016 CAL DELEON MD Ot 721.0 CERVICAL SPONDYLOSIS 05/28/2016 CAL DELEON MD Ot 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 THORACIC SPONDYLOSIS 05/28/2016 CAL DELEON MD Ot 721.3 LUMBOSACRAL SPONDYLOSIS 05/28/2016 CAL DELEON MD Ot 738.4 ACQ SPONDYLOLISTHESIS 05/28/2016 KEANUHIRAM RAYGOZA IT SENIOR SOFTWARE ENGINEER JAVA Ot E78.2 MIXED HYPERLIPIDEMIA 05/28/2016 KEANUHIRAM RAYGOZA D IT SENIOR SOFTWARE ENGINEER JAVA Ot R53.83 OTHER FATIGUE 05/28/2016 HIRAM COLUNGA IT SENIOR SOFTWARE ENGINEER JAVA Ot Z79.891 REGIONAL CLIMATE CHANGE ANALYST (CURRENT) USE OF OPIATE ANALGE 05/28/2016 CAL DELEON MD Ot 721.0 CERVICAL SPONDYLOSIS 05/28/2016 CAL DELEON MD Ot 721.2 THORACIC SPONDYLOSIS 05/28/2016 CAL DELEON MD Ot 721.3 LUMBOSACRAL SPONDYLOSIS 05/28/2016 CAL DELEON MD Ot 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.4 ACQ SPONDYLOLISTHESIS 07/16/2017 CAL DELEON MD Ot 721.0 CERVICAL SPONDYLOSIS 07/16/2017 CAL DELEON MD Ot 721.2 THORACIC SPONDYLOSIS 07/16/2017 CAL DELEON MD Ot 721.3 LUMBOSACRAL SPONDYLOSIS 07/16/2017 CAL DELEON MD Ot 738.4 ACQ SPONDYLOLISTHESIS 07/16/2017 HIRAM COLUNGA Ot E78.2 MIXED HYPERLIPIDEMIA 07/16/2017 HIRAM COLUNGA Ot R53.83 OTHER FATIGUE 07/16/2017 HIRAM COLUNGA Ot Z79.891 CORRECTION (CURRENT) USE OF OPIATE ANALGE Procedures Code [place] [address] ROUTINE VENIPUNCTURE 10/11/2013 00691 VIT B 12 10/11/2013 08699 MAGNESIUM 10/11/2013 03746 H PYLORI (RML) 10/11/2013 18052 HIV ANTIBODIES (RML) 10/11/2013 28397 HEP C PCR QUANT (SERIAL) 10/11/2013 17058 CBC 10/11/2013 0850650 GFR CALC (RESULT ONLY) 10/11/2013 96926 CMP 10/11/2013 Results Test Result Range Automated [...] in urine Negative NRG Serum or plasma 4-xjtzffrtmw-4,9-faervpcv-6,3-diphenylpyrrolidine (eddp) detection Negative NRG Urine opiates detection [...] and HIV-2 antibody assay See Footnote NRG Complete blood count (CBC) with automated white blood cell (WBC) differential - 07/16/17 14:38 Blood leukocytes automated count (number/volume) 6.7 10*3/uL 4.3-11.0 Blood erythrocytes automated count (number/volume) 4.88 10*6/uL 4.35-5.85 Venous blood hemoglobin measurement (mass/volume) 15.0 g/dL 13.3-17.7 Blood hematocrit (volume fraction) 43 % 40-54 Automated erythrocyte mean corpuscular volume 88 [foz_us] 80-99 Automated erythrocyte mean corpuscular hemoglobin (mass per erythrocyte) 31 pg 25-34 Automated erythrocyte mean corpuscular hemoglobin concentration measurement ( mass/volume) 35 g/dL 32-36 Automated erythrocyte distribution width ratio 13.7 % 10.0-14.5 Automated blood platelet count (count/volume) 274 10*3/uL 130-400 Automated blood platelet mean volume measurement 9.0 [foz_us] 7.4-10.4 Automated blood neutrophils/100 leukocytes 43 % 42-75 Automated blood lymphocytes/100 leukocytes 45 % 12-44 Blood monocytes/100 leukocytes 9 % 0-12 Automated blood eosinophils/100 leukocytes 3 % 0-10 Automated blood basophils/100 leukocytes 0 % 0-10 Blood neutrophils automated count (number/volume) 2.9 10*3 1.8-7.8 Blood lymphocytes automated count (number/volume) 3.1 10*3 1.0-4.0 Blood monocytes automated count (number/volume) 0.6 10*3 0.0-1.0 Automated eosinophil count 0.2 10*3/uL 0.0-0.3 Automated blood basophil count (count/volume) 0.0 10*3/uL 0.0-0.1 Comprehensive metabolic panel - 07/16/17 14:38 Serum or plasma sodium measurement (moles/volume) 140 mmol/L 135-145 Serum or plasma potassium measurement (moles/volume) 4.0 mmol/L 3.6-5.0 Serum or plasma chloride measurement (moles/volume) 106 mmol/L 98-107 Carbon dioxide 26 mmol/L 21-32 Serum or plasma anion gap determination (moles/volume) 8 mmol/L 5-14 Serum or plasma urea nitrogen measurement (mass/volume) 17 mg/dL 7-18 Serum or plasma creatinine measurement (mass/volume) 1.16 mg/dL 0.60-1.30 Serum or plasma urea nitrogen/creatinine mass ratio 15 NRG Serum or plasma creatinine measurement with calculation of estimated glomerular filtration rate > NRG Serum or plasma glucose measurement (mass/volume) 94 mg/dL 70-105 Serum or plasma calcium measurement (mass/volume) 8.9 mg/dL 8.5-10.1 Serum or plasma total bilirubin measurement (mass/volume) 0.8 mg/dL 0.1-1.0 Serum or plasma alkaline phosphatase measurement (enzymatic activity/volume) 34 U/L 40-136 Serum or plasma aspartate aminotransferase measurement (enzymatic activity/ volume) 14 U/L 5-34 Serum or plasma alanine aminotransferase measurement (enzymatic activity/volume ) 17 U/L 0-55 Serum or plasma protein measurement (mass/volume) 6.6 g/dL 6.4-8.2 Serum or plasma albumin measurement (mass/volume) 3.9 g/dL 3.2-4.5 Complete urinalysis with reflex to culture - 07/16/17 15:10 Urine color determination YELLOW NRG Urine clarity determination CLEAR NRG Urine pH measurement by test strip 5 5-9 Specific gravity of urine by test strip 1.025 1.016- 1.022 Urine protein assay by test strip, semi-quantitative 1+ NEGATIVE Urine glucose detection by automated test strip NEGATIVE NEGATIVE Erythrocytes detection in urine sediment by light microscopy NEGATIVE NEGATIVE Urine ketones detection by automated test strip NEGATIVE NEGATIVE Urine nitrite detection by test strip NEGATIVE NEGATIVE Urine total bilirubin detection by test strip NEGATIVE NEGATIVE Urine urobilinogen measurement by automated test strip (mass/volume) NORMAL NORMAL Urine leukocyte esterase detection by dipstick 1+ NEGATIVE Automated urine sediment erythrocyte count by microscopy (number/high power field) NONE NRG Automated urine sediment leukocyte count by microscopy (number/high power field ) [HPF] NRG Bacteria detection in urine sediment by light microscopy NONE NRG Crystals detection in urine sediment by light microscopy NONE NRG Casts detection in urine sediment by light microscopy NONE NRG Mucus detection in urine sediment by light microscopy MODERATE NRG Complete urinalysis with reflex to culture NO NRG Urine drug screening test - 07/16/17 15:10 Urine phencyclidine detection by screening method NEGATIVE NEGATIVE Urine benzodiazepines detection by screening method POSITIVE NEGATIVE Urine cocaine detection NEGATIVE NEGATIVE Urine amphetamines detection by screening method NEGATIVE NEGATIVE Urine methamphetamine detection by screening method NEGATIVE NEGATIVE Urine cannabinoids detection by screening method NEGATIVE NEGATIVE Urine opiates detection by screening method NEGATIVE NEGATIVE Urine barbiturates detection NEGATIVE NEGATIVE Screening urine tricyclic antidepressants detection NEGATIVE NEGATIVE Urine methadone detection by screening method NEGATIVE NEGATIVE Urine oxycodone detection POSITIVE NEGATIVE Urine propoxyphene detection NEGATIVE NEGATIVE Encounters ACCT No. Visit Date/Time Discharge Status Pt. Type Provider Facility Loc./Unit Complaint [id number] 10/28/2013 15:48:00 10/28/2013 23:59:59 CLS Outpatient JULESL SHAKILA JIMENZE [id number] 10/11/2013 10:19:00 10/11/2013 23:59:59 CLS Outpatient SHAKILA ACEVEDO APRN [id number] 05/01/2012 08:32:00 05/01/2012 23:59:59 CLS Outpatient [id number] 02/14/2017 17:20:00 02/14/2017 23:59:59 CLS [facility] [id number] 07/16/2017 14:17:00 07/16/2017 15:53:00 DIS Emergency NADIR ERICKSON APRN [facility] ER ABD PAIN [id number] 05/21/2016 09:29:00 05/21/2016 23:59:59 CLS Outpatient HIRAM COLUNGA [facility] LAB MIXED HYPERLIPIDEMIA,FATIGUE,Z20.89 [id number] 10/29/2013 12:32:00 10/29/2013 23:59:59 CLS Outpatient ADRIENNE BAKER, [place] [facility] RAD CHRONIC BACK PAIN [id number] 09/13/2013 04:09:00 09/13/2013 06:07:00 DIS Emergency SIRENA BAKER, ONEYDA Loera [facility] ER MULTIPLE COMPLAINTS [id number] 04/29/2012 20:42:00 Document Registration
[2017-07-24 08:15] VITALS: BP 122/101
[2017-07-24] MEDS ORDERED: LIDOCAINE 1% INJ 20 ML 20 ML VIAL ONE (08:19)
[2017-07-24] MEDS ORDERED: BUPIVACAINE 0.5% 30 ML (SENSORCAINE) VIAL ONE (08:20)
[2017-07-24] MEDS ORDERED: LACTATED RINGERS 1,000 ML IV PRN (08:23)
[2017-07-24] MEDS ORDERED: MIDAZOLAM 2 MG/2 ML (VERSED) VIAL IV ONE (08:30)
[2017-07-24] MEDS ORDERED: fentaNYL INJECTION 100 MCG/2 ML AMP ONE ×2 (09:04→09:39)
[2017-07-24] MEDS ORDERED: MIDAZOLAM 2 MG/2 ML (VERSED) VIAL ONE (09:04)
--- NOTE | 2017-07-24 09:10 | Progress Note-Pre Operative ---
Pre-Operative Progress Note H&P Reviewed The H&P was reviewed, patient examined and no changes noted. Date Seen by Provider: July 24, 2017 Time Seen by Provider: 09:10 Date H&P Reviewed: July 24, 2017 Time H&P Reviewed: 09:10 Pre-Operative Diagnosis: right inguinal hernia RHODA GAN DO July 24, 2017 09:10
[2017-07-24] MEDS ORDERED: proPOfol 200 MG/20 ML (DIPRIVAN) VIAL IV ONE (09:46)
[2017-07-24] MEDS ORDERED: LIDOCAINE PF 2% 5 ML (XYLOCAINE) VIAL ONE (09:46)
[2017-07-24] MEDS ORDERED: DEXAMETHASONE 10 MG/ML (DECADRON) 1 ML VIAL ONE (09:46)
[2017-07-24] MEDS ORDERED: SEVOFLURANE (ULTANE) 15 ML INHAL SOLN ONE ×3 (09:46→10:16)
[2017-07-24] MEDS ORDERED: ONDANSETRON 4 MG/2 ML (SDV) Z0FRAN ONE (09:46)
[2017-07-24] MEDS ORDERED: ceFAZolin 1,000 MG (ANCEF) VIAL ONE (09:50)
[2017-07-24] MEDS ORDERED: DOCU-143 PO (10:19)
--- NOTE | 2017-07-24 10:23 | Discharge Inst-Simple/Standard ---
Discharge Inst-Standard Discharge Medications New, Converted or Re-Newed RX: Transmitted to Pharmacy Patient Instructions/Follow Up Plan of Care/Instructions/FU: 2 WEEKS GAN Activity as Tolerated: No Discharge Diet: Regular Diet Other Inst to Patient Follow up Appt: Make appointment for 2 week. Instructions: No lifting greater than 10 pounds. No strenuous activity. May shower in 24 hours, no tub bath or soaking. Use incentive spirometer at home as directed. No Smoking Skin/Wound Care: You have special glue over incision that will fall off on its own. Symptoms to Report: Appetite Changes, Extremity Discoloration, Numbness/Tingling, Swelling Increased , Bleeding Excessive, Eyesight Changes, Pain Increased, Urine Color Change, Constipation(Persistent), Fever over 101 degree F, Pain/Pressure in chest, Urinating Difficulty, Cough Up/Vomit Blood, Heart Beat Irreg/Pounding, Pain/ Pressure in jaw, Vaginal Bleeding Increase, Cramps in feet or legs, Lightheadedness, Pain/Pressure in shoulder, Diarrhea(Persistent), Memory Changes Suddenly, Questions/Concerns, Weight gain consecutive days, Dizziness/ Fainting, Nausea/Vomiting, Shortness of Breath, Weight gain over 2 pounds If questions or concerns contact your physician Or seek help at emergency department. RHODA GAN DO July 24, 2017 10:22
--- NOTE | 2017-07-24 10:24 | Progress Note-Post Operative ---
Post-Operative Progess Note Surgeon (s)/Agricultural Real Estate Agent (s) Surgeon RHODA GAN DO Agricultural Real Estate Agent: Dr. Demarco Pre-Operative Diagnosis right inguinal hernia Post-Operative Diagnosis right inguinal hernia direct incarcerated fat, indirect reducible Procedure & Operative Findings Date of Procedure 07/24/17 Procedure Performed/Findings right inguinal hernia repair Anesthesia Type gen Estimated Blood Loss Estimated blood loss (mL): minimal Specimens/Packing Specimens Removed hernia sac RHODA GAN DO July 24, 2017 10:24
[2017-07-24] MEDS ORDERED: oxyCODONE/APAP 10/325MG (PERCOCET 10) TABLET PO PRN (10:30)
[2017-07-24] MEDS ORDERED: morphine INJ 10 MG/ML 1ML (SYR OR VIAL) ONE (10:33)
[2017-07-24] MEDS ORDERED: fentaNYL INJECTION 100 MCG/2 ML AMP IVP PRN (10:45)
[2017-07-24] MEDS ORDERED: morphine INJ 10 MG/ML 1ML (SYR OR VIAL) IVP PRN (10:45)
[2017-07-24] MEDS ORDERED: ONDANSETRON 4 MG/2 ML (SDV) Z0FRAN IVP PRN (10:45)
[2017-07-24 11:30] VITALS: BP 132/100
[2017-07-24 12:00] VITALS: BP 127/80
[2017-07-24 12:20] VITALS: BP 127/80
--- NOTE | 2017-07-24 12:31 | Anesthesia-General Post-Op ---
General Patient Condition Mental Status/LOC: Same as Preop Cardiovascular: Satisfactory Nausea/Vomiting: Absent Respiratory: Satisfactory Pain: Controlled Complications: Absent Post Op Complications Complications None Follow Up Care/Instructions Patient Instructions None needed. Anesthesia/Patient Condition Patient Condition Patient is doing well, no complaints, stable vital signs, no apparent adverse anesthesia problems. No complications reported per nursing. ELENA MARTINEZ CRNA July 24, 2017 12:31
--- NOTE | 2017-07-24 22:55 | OPERATIVE REPORT ---
DATE OF SERVICE: 07/24/2017 PREOPERATIVE DIAGNOSIS: Right inguinal hernia. POSTOPERATIVE DIAGNOSIS: Right direct incarcerated hernia and right indirect reducible hernia. PROCEDURE: Right inguinal hernia repair. SURGEON: Rhoda Nelson DO ELECTRICAL CONTROLS DESIGNER: Dr. Demarco, assisted in retraction, dissection and closure. ANESTHESIA: General. ESTIMATED BLOOD LOSS: Minimal. COMPLICATIONS: None. INDICATIONS: The patient is a 57-year-old male with a right inguinal hernia that is causing discomfort. He understands risks and benefits of procedure and wished to proceed with procedure. Consent was signed in the chart. DESCRIPTION OF PROCEDURE: The patient was taken to the operating suite, was prepped and draped in sterile fashion. Surgical pause was performed. Local anesthetic was infiltrated into the right groin area. Incision was made in the right lower quadrant, dissecting down the external oblique and the external oblique was opened from the external ring. The spermatic cord was then dissected around bluntly. A Sahil drain was placed. Direct defect was present. There was adherent fat through the defect, which had to be mobilized off of the surrounding tissues and then was able to be reduced. The defect was then closed using 0 Vicryl. There was an indirect defect as well. The hernia sac was dissected off of the cord. The hernia sac was opened. No contents present. Small amount of fat able reduced without any difficulty. The hernia sac was then twisted and suture ligated and then reduced. Using a right ProGrip mesh, this was secured to Ervin's ligament and then incorporating it around the spermatic cord and then all placed under the external oblique. The external oblique was then closed using 3-0 Vicryl in a running fashion, recreating the external ring. The subcutaneous tissues were then reapproximated using 3-0 Vicryl. Skin was then closed using 4-0 Monocryl. The area was then washed and dried and a SwiftSet was placed over the incision. The patient tolerated procedure well without any complications and was taken to recovery room in stable condition. Job ID: [id number] DocumentID: [id number] Dictated Date: 07/24/2017 14:31:24 Sisal Picker Date: 07/24/2017 22:54:31 Dictated By: RHODA NELSON DO [facility]
== END 2017-07-24 12:30 | disposition home or self-care (01) ==
LOC: SDC 07:54
PROVIDERS: ATTEND Surgery
DX: K40.30 Unilateral inguinal hernia, with obstruction, without gangrene, not specified as recurrent (principal)
CPT/HCPCS: 87081; 88302; 94664